=== PATIENT | female | born 2000 | race African-American/Black ===

== ENCOUNTER 2021-07-03 15:56 | Emergency (ER) | payer OTHER, BC, SELFPAY ==
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
[2021-07-03 17:01] VITALS: BP 122/75; PULSE 118; RESP 18; TEMP 36.8; O2SAT 100; BMI 27.3
[2021-07-03] MEDS: Acetaminophen 325 MG TABLET 650 MG PO (17:06)
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
== END 2021-07-03 20:34 | disposition home or self-care (01) ==
PROVIDERS: Emergency Provider Emergency Medicine; PCP Physician Assistant
DX: S46.912A Strain of unspecified muscle, fascia and tendon at shoulder and upper arm level, left arm, initial encounter (principal); V43.52XA Car driver injured in collision with other type car in traffic accident, initial encounter; Y93.89 Activity, other specified; Y92.414 Local residential or business street as the place of occurrence of the external cause; Y99.9 Unspecified external cause status
CPT/HCPCS: 73030; 99283; 99284

== ENCOUNTER 2021-09-09 17:00 | Outpatient (RCR) | payer OTHER, BC, SELFPAY ==
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
--- NOTE | 2021-09-09 17:58 | MHC.PT.DC ---
[facility] [place] Office [place] Office [place] Office [address] Yee Mckeon [address] [phone] F: [phone] F: [phone] F: [phone] F: [phone] Physical Therapy Discharge Report Diagnosis: strain of unspecified muscle, fascia and tendon at shoulder and upper arm level Dorsalgia Date of Surgery: N/A Date of Evaluation: 07/30/21 Date of Discharge: 09/09/21 Treatments to Date: 10 Cancellations to Date: No Shows to Date: Discharge Status: Achieved Goals Improved Function Independent with HEP Discharge Summary: Pt has made good progress with skilled PT since SOC and has reached a functional plateau at this time. She has met her STGs and LTGs. She has improved her score on SPADI outcome measure from 101/130 on initial PT evaluation to 72/130 today. She is I with HEP and has updated copy of HEP. Pt is being D/C from skilled PT at this time. Pt reports no further questions or concerns for PT at this time. Electronically signed by: Carolina Gandara, PT, DPT Please sign and return to therapist. Thank you for your referral.
== END 2021-09-09 17:59 | disposition home or self-care (01) ==
LOC: HO.PT 17:00
PROVIDERS: PCP Physician Assistant; Visit Provider Pediatrics
DX: M54.9 Dorsalgia, unspecified (principal); S46.912D Strain of unspecified muscle, fascia and tendon at shoulder and upper arm level, left arm, subsequent encounter
CPT/HCPCS: 97110; 97140; 97161; 97530

== ENCOUNTER 2022-06-15 01:04 | Emergency (ER) | payer BC, SELFPAY ==
[2022-06-15 01:28] VITALS: BP 116/68; PULSE 89; RESP 14; TEMP 36.6; O2SAT 99; BMI 24.0
--- NOTE | 2022-06-15 01:37 | ECG_ITS ---
Test Reason : SOB/CHEST PAIN Blood Pressure : / mmHG Vent. Rate : 081 BPM Atrial Rate : 081 BPM P-R Int : 126 ms QRS Dur : 076 ms QT Int : 344 ms P-R-T Axes : 066 060 060 degrees QTc Int : 399 ms Normal sinus rhythm with sinus arrhythmia Normal ECG No previous ECGs available Referred By: Generic ED Physician Electronically Signed By:Giorgi Parham
--- NOTE | 2022-06-15 01:50 | ED.URI ---
HPI - URI/Sore Throat General Chief Complaint: Upper Respiratory Symptoms Stated Complaint: coughing, chest pain Time Seen by Provider: 06/15/22 01:42 Source: patient Mode of arrival: ambulatory Limitations: no limitations History of Present Illness HPI Narrative: 22-year-old female came in for evaluation of coughing and chest pain with coughing for the past month. 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 No radiation of the pain. Related Data Previous Rx's Medication Instructions Recorded epinephrine 0.3 mg/0.3 mL 0.3 mg (0.3 mL) IM ONCE PRN 02/15/21 injection, auto-injector anaphylaxis #2 ea cyclobenzaprine 5 mg tablet 5 mg PO BEDTIME #7 tabs 07/03/21 lidocaine 5 % topical patch 1 patch topical DAILY PRN pain #15 07/03/21 ea cetirizine 10 mg tablet 10 mg PO DAILY PRN allergy 07/17/21 symptoms #90 tabs norelgestromin 150 mcg-e.estradiol 1 patch transdermal QWEEK #9 ea 04/28/22 35 mcg/24 hr weekly transderm patch (Xulane) ohbvfkarhguzd-NC-zddnizijpygyd-guaif 10 ml PO .tid PRN cough #177 mL 06/15/22 10 mg-20 mg-650 mg/20 mL oral liq (Yrym-Ngg-Rgds Throat) prednisone 20 mg tablet 20 mg PO BID #10 tabs 06/15/22 Allergies Allergy/AdvReac Type Severity Reaction Status Date / Time No Known Allergies Allergy Verified 04/28/22 13:04 seasonal Allergy Unknown unknown Uncoded 04/28/22 13:04 Review of Systems Review of Systems: All other systems are reviewed and are negative Constitutional: Reports as per HPI and Reports no additional constitutional complaints Eyes: Reports as per HPI and Reports no additional eye complaints Reports system reviewed and no additional complaints, except as documented Cardiovascular: Reports as per HPI and Reports no additional cardiovascular complaints Respiratory: Reports as per HPI and Reports no additional respiratory complaints Gastrointestinal: Reports as per HPI and Reports no additional gastrointestinal complaints Genitourinary: Reports no additional female genitourinary complaints Musculoskeletal: Reports no additional musculoskeletal complaints Skin/Breast: Reports system reviewed and no additional complaints, except as docu Psychiatric: Reports no additional psychiatric complaints Endocrine: Reports no additional endocrine complaints Hematologic/Lymphatic: Reports no additional hematologic/lymphatic complaints Allergic/Immunologic: Reports no additional allergic/immunologic complaints Reports system reviewed and no additional complaints, except as documented and Reports Abnormal speech present [facility] Past Medical History Medical History COVID-19 vaccine administered Family History Family History Mother No problems noted. Social History Social History Household Members: Family Advance Directives: No Physical Exam Vital Signs: Vital Signs: Last Vital Signs Temp 97.8 F 06/15/22 02:05 Pulse 84 06/15/22 02:05 Resp 16 06/15/22 02:05 BP 118/76 06/15/22 02:05 Pulse Ox 98 06/15/22 02:37 O2 Del Method 06/15/22 02:37 BMI result Body Mass Index 24.0 Vital signs have been reviewed as appeared to be correct. Blood pressure normal. Heart rate normal. Respiration rate normal. Temperature normal. Oxygen saturation normal. Appearance: Alert. Oriented X3. No acute distress. Head: Normal external exam. Normocephalic. Atraumatic. No Landaverde signs noted. No raccoon eyes noted Eyes: PERRLA. EOMI. Conjunctiva and sclera normal. Eyelids normal. ENT: TM's Normal. Pharynx normal. Uvula midline. Moist mucous membranes. No trismus noted. No drooling noted. No muffled voice noted. Neck: Normal inspection. Neck supple. FROM. No adenopathy. Thyroid Normal. No meningeal signs. No neck mass noted. CVS: Normal heart rate and rhythm. Heart sound normal. No murmurs noted. Pulses normal throughout. Respiratory: No respiratory distress. Painless inspiration. Breath sounds normal. No wheezes/rales/rhonchi noted. Chest nontender. No accessory muscle usage noted or decreased air movement noted. Abdomen: Soft and nontender. Bowel sounds normal in all 4 quadrants. No distention noted. No organomegaly noted. No visible injury noted. Back: No CVA tenderness. Full range of motion noted. Skin: Skin warm and dry. Normal skin color. Normal skin turgor. No rashes/lesions/lacerations noted. Extremities: No lower extremity edema. Extremities exhibit normal range of motion. Extremities nontender. Neuro: Oriented X 3. Cranial nerve exam: II-XII are grossly intact No motor deficit. No sensory deficit. Reflexes normal. Course Course Course Narrative: 22-year-old female came in for 1 month of coughing and chest pain, patient is negative for upper respiratory viral panel infection, chest x-ray is unremarkable for acute infiltrate. Patient been having the symptoms for 1 month will start the patient on short course of low-dose of prednisone and coughing medication with follow-up with PCP. Medical Decision Making Differential Diagnosis Differential Diagnoses: The differential diagnosis associated with the presentation includes (RSV, influenza, COVID-19 infection, pneumonia.) Lab Data MDM Lab Attestation statement: I reviewed the patient's lab results. Result Diagrams: 06/15/22 01:45 06/15/22 01:45 Labs: Lab Results 06/15/22 06/15/22 06/15/22 Range/Units 01:45 01:45 01:45 WBC 7.2 (4.8-10.8) X10*3/uL RBC 4.25 (4.20-5.50) X10*6/uL Hgb 12.9 (12.0-16.0) g/dl Hct 37.7 (37.0-47.0) % MCV 88.7 (80.0-98.0) fL MCH 30.4 (27.0-33.0) pg MCHC 34.2 (31.0-35.0) g/dl RDW 12.6 (11.0-16.0) % Plt Count 260 (160-400) X10*3/uL MPV 10.2 (9.4-12.3) fL Absolute Nucleated RBC 0.000 (0.0-0.012) X10*3/uL Nucleated RBC % (auto) 0.0 (0.0-0.2) /100WBC Sodium 139 (135-145) mmol/L Potassium 4.0 (3.3-5.1) mmol/L Chloride 108 (96-108) mmol/L Carbon Dioxide 23 (22-29) mmol/L Anion Gap 12 (12-20) BUN 10 (9-16) mg/dL Creatinine 0.62 (0.5-1.4) mg/dL Estim Creat Clear Calc 117.1 Estimated GFR > 60 Random Glucose 88 (60-115) mg/dL Calcium 8.9 (8.4-10.2) mg/dL COVID-19 (YUMIKO) (Negative) COVID-19 Clin Com Influenza Type A (PCR) NEGATIVE (Negative) Influenza Type B (PCR) NEGATIVE (Negative) RSV RNA Qual (PCR) NEGATIVE (Negative) SARS-CoV-2 RNA (RT-PCR) NEGATIVE (Negative) 06/15/22 Range/Units 02:01 WBC (4.8-10.8) X10*3/uL RBC (4.20-5.50) X10*6/uL Hgb (12.0-16.0) g/dl Hct (37.0-47.0) % MCV (80.0-98.0) fL MCH (27.0-33.0) pg MCHC (31.0-35.0) g/dl RDW (11.0-16.0) % Plt Count (160-400) X10*3/uL MPV (9.4-12.3) fL Absolute Nucleated RBC (0.0-0.012) X10*3/uL Nucleated RBC % (auto) (0.0-0.2) /100WBC Sodium (135-145) mmol/L Potassium (3.3-5.1) mmol/L Chloride (96-108) mmol/L Carbon Dioxide (22-29) mmol/L Anion Gap (12-20) BUN (9-16) mg/dL Creatinine (0.5-1.4) mg/dL Estim Creat Clear Calc Estimated GFR Random Glucose (60-115) mg/dL Calcium (8.4-10.2) mg/dL COVID-19 (YUMIKO) Negative (Negative) COVID-19 Clin Com See Note Influenza Type A (PCR) (Negative) Influenza Type B (PCR) (Negative) RSV RNA Qual (PCR) (Negative) SARS-CoV-2 RNA (RT-PCR) (Negative) Independent Interpretation I performed an independent interpretation of an: Plain X-Ray (Chest: No acute intrathoracic pathology.) Radiology Impression Discussion of test interpretation with radiology: I have reviewed the radiologist's reading. Discharge Plan Discharge Clinical Impression: Bronchitis Patient Disposition: Home, Self-Care Instructions: Acute Bronchitis (ED) Prescriptions: New prednisone 20 mg tablet 20 mg PO BID Qty: 10 0RF Rape-Iau-Ggdg Throat 10-20-650 mg/20 mL liquid 10 ml PO .tid PRN (Reason: cough) Qty: 177 0RF No Action cetirizine 10 mg tablet 10 mg PO DAILY PRN (Reason: allergy symptoms) Qty: 90 1RF cyclobenzaprine 5 mg tablet 5 mg PO BEDTIME Qty: 7 0RF lidocaine 5 % adhesive patch,medicated 1 patch topical DAILY PRN (Reason: pain) Qty: 15 0RF Rx Instructions: leave on most painful area for up to 12 hrs epinephrine 0.3 mg/0.3 mL auto-injector 0.3 mg IM ONCE PRN (Reason: anaphylaxis) Qty: 2 0RF Rx Instructions: for 2 doses Xulane 150-35 mcg/24 hr patch weekly 1 patch transdermal QWEEK Qty: 9 4RF Rx Instructions: apply once weekly for 3 weeks of a 4-week cycle Referrals: Physician,Unknown J [Primary Care Provider] - Stand Alone Forms: Work/School Release
[2022-06-15 01:53] LABS: Hematocrit 37.7 % (37.0-47.0); Hemoglobin 12.9 g/dl (12.0-16.0); Mean Corpuscular HGB Conc 34.2 g/dl (31.0-35.0); Mean Corpuscular Hemoglobin 30.4 pg (27.0-33.0); Mean Corpuscular Volume 88.7 fL (80.0-98.0); Mean Platelet Volume 10.2 fL (9.4-12.3); Platelet Count 260 X10*3/uL (160-400); Red Blood Count 4.25 X10*6/uL (4.20-5.50); Red Cell Distribution Width 12.6 % (11.0-16.0); White Blood Count 7.2 X10*3/uL (4.8-10.8)
[2022-06-15 02:05] VITALS: BP 118/76; PULSE 84; RESP 16; TEMP 36.6; O2SAT 98
[2022-06-15 02:18] LABS: Anion Gap 12 (12-20); Blood Urea Nitrogen 10 mg/dL (9-16); Calcium 8.9 mg/dL (8.4-10.2); Carbon Dioxide 23 mmol/L (22-29); Chloride 108 mmol/L (96-108); Creatinine Clr Calc Pharmacy 117.1; Estimated Glomerular Filt Rate > 60; Glucose Random 88 mg/dL (60-115); Sodium 139 mmol/L (135-145)
[2022-06-15 02:20] LABS: COVID-19 Test Negative (Negative); IDNOW Serial# BCCEAD1C
[2022-06-15 02:30] LABS: Influenza A PCR NEGATIVE (Negative); Influenza B PCR NEGATIVE (Negative); Resp Syncy Virus RNA Qual PCR NEGATIVE (Negative); SARS COV2 PCR INHOUSE NEGATIVE (Negative)
[2022-06-15 02:37] VITALS: O2SAT 98
== END 2022-06-15 03:52 | disposition home or self-care (01) ==
PROVIDERS: Emergency Provider Emergency Medicine
DX: J20.9 Acute bronchitis, unspecified (principal); R05.9 Cough, unspecified; R07.89 Other chest pain; Z20.822 Contact with and (suspected) exposure to COVID-19; Z79.899 Other long term (current) drug therapy
CPT/HCPCS: 0241U; 36415; 71046; 80048; 85027; 87635; 93005; 99285

== ENCOUNTER 2022-08-05 07:23 | Emergency (ER) | payer BC, SELFPAY ==
[2022-08-05 07:30] VITALS: BP 105/69; PULSE 90; RESP 18; TEMP 36.2; O2SAT 99; BMI 24.0
[2022-08-05 08:09] LABS: IDNOW Serial# 9DB6401D; Influenza A Negative (Negative); Influenza B2 Negative (Negative)
[2022-08-05 08:10] LABS: COVID-19 Test Negative (Negative); IDNOW Serial# 16C4AD1C
[2022-08-05 08:33] VITALS: O2SAT 99
--- NOTE | 2022-08-05 08:40 | ED_ITS ---
HPI - General Adult General Chief complaint: Upper Respiratory Symptoms Stated complaint: Sore throat Time Seen by Provider: 08/05/22 08:27 Source: patient Mode of arrival: ambulatory Limitations: no limitations History of Present Illness HPI narrative: Patient is a 22 year old assigned female at with no reported medical history presenting to the emergency department today with a sore throat. Patient states that she has had a sore throat for the last few days and last night she began to lose her voice. Patient denies any dizziness, lightheadedness, abdominal pain, nausea, vomiting, fever, chills, blurry vision, double vision, loss of vision, chest pain, difficulty breathing, shortness of breath, back pain, night sweats, pain with urination, increased urinary frequency, increased urinary urgency, blood in her urine or stool, syncope or a near syncopal episode, recent trauma or falls, bowel incontinence, bladder incontinence, bowel retention, bladder retention, or any other complaints at this time. Onset (ago): day(s) Severity: mild Severity scale (1-10): 2 Relieving factors: none Exacerbating factors: none Associated symptoms: denies other symptoms Treatments prior to arrival: none Related Data Previous Rx's Medication Instructions Recorded epinephrine 0.3 mg/0.3 mL 0.3 mg (0.3 mL) IM ONCE PRN 02/15/21 injection, auto-injector anaphylaxis #2 ea cyclobenzaprine 5 mg tablet 5 mg PO BEDTIME #7 tabs 07/03/21 lidocaine 5 % topical patch 1 patch topical DAILY PRN pain #15 07/03/21 ea cetirizine 10 mg tablet 10 mg PO DAILY PRN allergy 07/17/21 symptoms #90 tabs norelgestromin 150 mcg-e.estradiol 1 patch transdermal QWEEK #9 ea 04/28/22 35 mcg/24 hr weekly transderm patch (Xulane) phmmzgiaembnn-NG-saijqfegmbtyk-guaif 10 ml PO .tid PRN cough #177 mL 06/15/22 10 mg-20 mg-650 mg/20 mL oral liq (Mfsh-Phh-Mvje Throat) prednisone 20 mg tablet 20 mg PO BID #10 tabs 06/15/22 Allergies Allergy/AdvReac Type Severity Reaction Status Date / Time No Known Allergies Allergy Verified 04/28/22 13:04 seasonal Allergy Unknown unknown Uncoded 04/28/22 13:04 Review of Systems Constitutional: Constitutional: Reports no additional constitutional complaints, Denies chills, Denies fever(s) and Denies night sweats Eyes: Eyes: Reports no additional eye complaints, Denies blurry vision, Denies change in vision, Denies diplopia, Denies eye discharge, Denies loss of vision and Denies eye pain ENT: Denies dizziness and Reports sore throat Cardiovascular: Cardiovascular: Reports no additional cardiovascular complaints, Denies chest pain, Denies lightheadedness, Denies Loss of Consciousness and Denies dyspnea Respiratory: Respiratory: Reports no additional respiratory complaints and Denies dyspnea Gastrointestinal: Gastrointestinal: Reports no additional gastrointestinal complaints, Denies abdominal pain, Denies melena, Denies hematochezia, Denies change in bowel habits and Denies change in stool character Genitourinary: Genitourinary: Denies hematuria, Denies urinary frequency, Denies dysuria, Denies urinary incontinence, Denies urinary hesitancy and Denies urinary urgency Musculoskeletal: Musculoskeletal: Reports no additional musculoskeletal complaints, Denies numbness and Denies tingling Neurologic: Denies dizziness, Denies loss of vision, Denies numbness and Denies tingling Psychiatric: Psychiatric: Reports no additional psychiatric complaints Endocrine: Endocrine: Reports no additional endocrine complaints Hematologic/Lymphatic: Hematologic/Lymphatic: Reports no additional hematologic/lymphatic complaints Allergic/Immunologic: Allergic/Immunologic: Reports no additional allerg ic/immunologic complaints FOR[facility]LY [facility], [facility] Past Medical History Attestation statement: The following information was validated with the patient. Source: old records reviewed and nursing notes reviewed Medical History COVID-19 vaccine administered No known health problems No known health problems Family History Family History Mother No problems noted. Social History Social History Household Members: Family Alcohol intake: never Smoked in Last 30 Days: No Use of substances other than those prescribed or required for medical reasons: No Advance Directives: No Advance Directives Information Provided: No Patient : No Physical Exam ED Vital Signs: Vital Signs - 24 hr 08/05/22 07:30 08/05/22 08:33 Temperature 97.1 F Pulse Rate 90 Respiratory Rate 18 Blood Pressure 105/69 Pulse Oximetry 99 99 Oxygen Delivery Method Room Air Room Air BMI result Body Mass Index 24.0 Const General: cooperative, no acute distress, alert and awake Nutritional Appearance: well nourished Orientation/consciousness: patient oriented x3 Limitations: no limitations HENMT Head: Yes normal to inspection and Yes atraumatic Ears: hearing grossly normal bilaterally and external ears normal General nose exam: Normal external nose present, no nasal discharge noted and no epistaxis Face and sinus: Yes normal facial exam, No abrasion and No laceration Mouth: Normal oral and palatal mucosa present, no drooling and no muffled voice Throat: Yes posterior oropharynx abnormal (minimal erythema) Eyes General: appearance normal, both eyes and all related structures Periorbital: periorbital findings normal Eyelids: Yes eyelids normal Conjunctivae: conjunctivae normal Pupils: Equal, round and reactive pupils present EOM: EOMs intact bilaterally Neck Neck: Yes normal visual inspection, Yes full ROM and Yes no lymphadenopathy Chest Chest palpation & inspection: normal inspection of the chest Resp Effort & Inspection: normal respiratory effort and able to speak in complete sentences Auscultation: clear to auscultation bilaterally Cardio Rate: regular rate Rhythm: regular rhythm GI Inspection: Yes normal to inspection Neuro General: patient oriented x3 and moves all extremities Cranial nerves: Yes Equal, round and reactive pupils present Cognition (Neuro): normal cognition Motor exam (neuro): 5/5 motor strength present throughout Sensory Exam: Normal double simultaneous stimulation for sensation Coordination: lmpyfy-xo-imsi test normal Extrem General: Yes normal to inspection, Yes full ROM and Yes capillary refill normal Psych Appearance: grossly normal Mental Status: mental status grossly normal Affect: normal affect Attitude: cooperative Thought process: Normal thought process present Thought content: Normal thought content present Insight: Good insight present (Psych) Medical Decision Making Medical Decision Making MDM Narrative: Patient is a 22 year old assigned female at with no reported medical history presenting to the emergency department today with a sore throat. Patient's physical exam showed minimal posterior oropharynx erythema. Patient's COVID/Influenza and strep tests were negative. I explained my physical exam findings as well as all test results to the patient. I answered all questions asked by the patient. I stressed the importance of the patient taking her medication as prescribed. I stressed the importance of the patient following up with her primary care provider. I stressed the importance of the patient returning to the emergency department immediately if her symptoms were to worsen or if she were to develop any dizziness, shortness of breath, difficulty breathing, chest pain, blurry vision, loss of vision, nausea, vomiting, abdominal pain, fever, chills, back pain, or any other complaints. Patient verbalized agreement and understanding with this treatment plan and discharge. Differential Diagnosis Differential Diagnoses: The differential diagnosis associated with the pr esentation includes pharyngitis Lab Data MDM Lab Attestation statement: I reviewed the patient's lab results. Labs: Lab Results 08/05/22 08/05/22 08/05/22 Range/Units 07:35 07:35 07:35 COVID-19 (YUMIKO) Negative (Negative) COVID-19 Clin Com See Note Influenza Type A (IRENE) Negative (Negative) Influenza Type B (IRENE) Negative (Negative) Influenza A & B Note See Note S. pyogenes GrpA IRENE Negative (Negative) Discharge Plan Discharge Clinical Impression: Pharyngitis Patient Disposition: Home, Self-Care Instructions: Pharyngitis (ED) Additional Instructions: Follow up with your primary care provider. Return to the emergency department immediately if your symptoms worsen or if you develop any dizziness, shortness of breath, difficulty breathing, chest pain, blurry vision, loss of vision, nausea, vomiting, abdominal pain, fever, chills, back pain, or any other complaints. Prescriptions: No Action cetirizine 10 mg tablet 10 mg PO DAILY PRN (Reason: allergy symptoms) Qty: 90 1RF cyclobenzaprine 5 mg tablet 5 mg PO BEDTIME Qty: 7 0RF lidocaine 5 % adhesive patch,medicated 1 patch topical DAILY PRN (Reason: pain) Qty: 15 0RF Rx Instructions: leave on most painful area for up to 12 hrs prednisone 20 mg tablet 20 mg PO BID Qty: 10 0RF Qljf-Ijz-Aqib Throat 10-20-650 mg/20 mL liquid 10 ml PO .tid PRN (Reason: cough) Qty: 177 0RF epinephrine 0.3 mg/0.3 mL auto-injector 0.3 mg IM ONCE PRN (Reason: anaphylaxis) Qty: 2 0RF Rx Instructions: for 2 doses Xulane 150-35 mcg/24 hr patch weekly 1 patch transdermal QWEEK Qty: 9 4RF Rx Instructions: apply once weekly for 3 weeks of a 4-week cycle Referrals: [facility] [place] [facility] [place] Group] (Call to establish and follow up with a primary care provider. If you already have a primary care provider, please follow up with them. ) [facility] [place] [facility] [Provider Group] (Call to establish and follow up with a primary care provider. If you already have a primary care provider, please follow up with them. ) [facility] [place] [facility] [Provider Group] (Call to establish and follow up with a primary care provider. If you already have a primary care provider, please follow up with them. ) Stand Alone Forms: Work/School Release Interventions: ED Discharge Assessment Last Done: 08/05/22 09:14 Print Language: American
[2022-08-05 08:43] LABS: IDNOW Serial# 6674DD1D; Strep A Nucleic Acid Negative (Negative)
== END 2022-08-05 09:15 | disposition home or self-care (01) ==
PROVIDERS: Emergency Provider Emergency Medicine
DX: J02.8 Acute pharyngitis due to other specified organisms (principal); Z20.822 Contact with and (suspected) exposure to COVID-19; Z20.828 Contact with and (suspected) exposure to other viral communicable diseases; Z79.899 Other long term (current) drug therapy
CPT/HCPCS: 87502; 87635; 87651; 99283; 99284

== ENCOUNTER 2022-08-18 12:11 | Outpatient (REF) | payer BC, SELFPAY ==
[2022-08-18 13:00] LABS: Influenza A PCR NEGATIVE (Negative); Influenza B PCR NEGATIVE (Negative); Resp Syncy Virus RNA Qual PCR NEGATIVE (Negative); SARS COV2 PCR INHOUSE NEGATIVE (Negative)
== END 2022-08-18 12:12 | disposition home or self-care (01) ==
LOC: HO.LNP 12:11
PROVIDERS: Visit Provider Hospitalist
DX: Z20.822 Contact with and (suspected) exposure to COVID-19 (principal); B34.9 Viral infection, unspecified
CPT/HCPCS: 0241U

== ENCOUNTER 2023-06-12 09:24 | Outpatient (REF) | payer BC, SELFPAY ==
[2023-06-13 05:43] LABS: CT PCR NOT DETECTED (Not Detect.); NG PCR NOT DETECTED (Not Detect.)
[2023-06-13 12:12] LABS: BV Int Neg Control Negative (Negative); BV Int Pos Control Positive (Positive)
[2023-06-27 04:09] LABS: HPV mRNA E6/E7 rflx Not Detected (Not Detected)
== END 2023-06-12 09:25 | disposition home or self-care (01) ==
LOC: HO.LNP 09:24
PROVIDERS: PCP Hospitalist; Visit Provider Advanced Practice Midwife
DX: Z01.419 Encounter for gynecological examination (general) (routine) without abnormal findings (principal); Z11.51 Encounter for screening for human papillomavirus (HPV); Z20.2 Contact with and (suspected) exposure to infections with a predominantly sexual mode of transmission
CPT/HCPCS: 0353U; 87480; 87510; 87624; 87660; 88142

== ENCOUNTER 2023-06-12 09:24 | Outpatient (AMB) | payer BC, SELFPAY ==
[2023-06-12 09:29] VITALS: BP 110/66; BMI 25.7
--- NOTE | 2023-06-12 09:29 | MHC.OFFVIS ---
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 She had a visit last year to discuss all of this and the plan at that time was to schedule at an annual exam and Pap soon after but it has been a little over year. She has the Ortho Evra/zulane patch and she has been using it for the past year and likes it very much and feels it is working well for her she changes it weekly she has not had any issues with being late with a when she is got no skin concerns and she is happy with the method in wants another prescription for. She has 1 box left and is in the middle of 1 cycle currently. She has no health concerns and she does not smoke. [facility] Medical History No known health problems No known health problems COVID-19 vaccine administered Family History Mother No problems noted. Social History Household Members: Family Housing: Apartment Alcohol intake: never Patient Tobacco Use Status: Never used Tobacco e-Cigarette/Vaping Use: Never Used Current occupational status: employed Female Reproductive History Menstrual Age of Menarche: 13 Duration of menses: 3-5 days Date of last menstrual period: 05/22/23 control method: patch Total pregnancies: 0 Physical Exam Vital Signs: Last Vital Signs BP 110/66 06/12/23 09:29 BMI result Body Mass Index 25.7 Const General: healthy appearing, comfortable, no acute distress, well developed and alert Nutritional Appearance: average body habitus Orientation/consciousness: patient oriented x3 Limitations: no limitations HEENT Head: Yes normocephalic Neck Neck: Yes normal visual inspection Thyroid: Thyroid normal Chest Chest palpation & inspection: normal inspection of the chest Breast/axilla inspection: normal inspection of the breasts and normal inspection of the axillae Breast/axilla palpation: normal palpation of the breasts and normal palpation of the axillae Resp Effort & Inspection: normal respiratory effort GI Inspection: Yes normal to inspection, No Abdominal wall edema and No distended Palpation (GI): Soft to palpation and nontender Other: Normal external exam no lesions vagina pink moist with healthy appearing mucus cervix is nulliparous posterior mobile nontender with normal discharge uterus is small midposition mobile nontender adnexa is nontender not enlarged good tone with Kegel. General: Yes bladder normal to palpation External Female Exam: normal external appearance and normal appearance of the urethra Speculum Exam - Vagina: normal appearance of the vagina, normal palpation and normal vaginal discharge Speculum Exam - Cervix: normal appearance of the cervix, normal palpation and nontender Bimanual exam- vagina & uterus: normal bimanual exam, normal palpation, uterine size normal, bladder normal to palpation, consistency normal, normal palpation, uterine mobility normal, uterine shape normal, No Cervical tenderness present, non-tender and no cervical motion tenderness Bimanual Exam- Adnexa, other: normal adnexae, no masses, normal and No adnexal tenderness Neuro General: patient oriented x3 Assessment & Plan Assessment & Plan (1) Uses hormonal contraceptive patch as primary control method: Code(s): Z78.9 - Other specified health status (2) Well woman exam with routine gynecological exam: Code(s): Z01.419 - Encounter for gynecological examination (general) (routine) without abnormal findings (3) Cervical cancer screening: Code(s): Z12.4 - Encounter for screening for malignant neoplasm of cervix (4) Encounter for screening examination for sexually transmitted disease: Code(s): Z11.3 - Encounter for screening for infections with a predominantly sexual mode of transmission (5) Contraceptive surveillance: Code(s): Z30.40 - Encounter for surveillance of contraceptives, unspecified Plan -----Discussed in this visit the following: healthy balanced diet, regular and consistent exercise, getting recommended health screens, doing the best she can for her particular health concerns, kegel exercises, pap smear screening and followup recommendations, mammography screening and SBE, normal changes in cycles in her life stage--- . Reviewed her use of the control patch and how to use it and any potential problems and she is not having any of them. I renewed her prescription for another year I also reviewed normal female anatomy with her and normal vaginal carson and common findings of Gardnerella or Sonal on the test findings and that she would only need treatment if she is having symptoms her discharge was completely within normal limits. Orders: Orders CT NG by PCR Today Z20.2 - Contact with and (suspected) exposure to infections with a predominantly sexual mode of transmission Pap Smear Today Z12.4 - Encounter for screening for malignant neoplasm of cervix Bacterial Vaginosis Panel Today Z20.2 - Contact with and (suspected) exposure to infections with a predominantly sexual mode of transmission Medications: Refilled norelgestromin-ethin.estradiol 150-35 mcg/24 hr (Xulane) apply once weekly for 3 weeks of a 4-week cycle 1 patch transdermal QWEEK 9 ea 4RF Coding Level of Care Code Est Pt Prev Care 18-39y(77201) Diagnoses Uses hormonal contraceptive patch as primary control method Z78.9 Well woman exam with routine gynecological exam Z01.419 Cervical cancer screening Z12.4 Encounter for screening examination for sexually transmitted disease Z11.3 Contraceptive surveillance Z30.40
== END 2023-06-12 10:55 | disposition home or self-care (01) ==
LOC: HO.HWSM 09:24
PROVIDERS: PCP Hospitalist; Visit Provider Advanced Practice Midwife
DX: Z01.419 Encounter for gynecological examination (general) (routine) without abnormal findings (principal)
CPT/HCPCS: 99395

== ENCOUNTER 2024-02-23 13:03 | Emergency (ER) | payer BC, SELFPAY ==
[2024-02-23 13:10] VITALS: BP 108/68; PULSE 105; RESP 19; TEMP 36.6; O2SAT 98; BMI 25.5
--- NOTE | 2024-02-23 13:11 | ED.GENADULT ---
HPI - General Adult General Chief complaint: General Medical Stated complaint: Sore throat, ear ache Time Seen by Provider: 02/23/24 13:11 Source: patient, RN notes reviewed and old records reviewed Mode of arrival: ambulatory Limitations: no limitations History of Present Illness ED Provider: Rose Marie OROZCO narrative: 23-year-old female presents for evaluation of a sore throat and left ear pain Patient reports that she woke up this morning with the pain pain Denies any fevers, chills, cough Denies any known specific contacts pain Denies any recent travel. She reports that she went to an urgent care but ?they told me everybody has the same thing and they are too busy so to come here. ? Related Data Previous Rx's ?Medication ?Instructions ?Recorded cetirizine 10 mg tablet 10 mg PO DAILY PRN allergy 08/13/22 symptoms #90 tabs epinephrine 0.3 mg/0.3 mL 0.3 mg (0.3 mL) IM ONCE PRN 08/13/22 injection, auto-injector anaphylaxis #2 ea norelgestromin 150 mcg-e.estradiol 1 patch transdermal QWEEK #9 ea 06/12/23 35 mcg/24 hr weekly transderm patch (Xulane) amoxicillin 875 mg-potassium 1 tab PO Q12H #20 tabs 02/23/24 clavulanate 125 mg tablet Allergies Allergy/AdvReac Type Severity Reaction Status Date / Time No Known Allergies Allergy Verified 02/23/24 13:11 seasonal Allergy Unknown unknown Uncoded 02/23/24 13:11 Review of Systems Constitutional: Constitutional: Denies body ache(s), Denies chills, Denies fever(s) and Denies headache(s) Eyes: Eyes: Denies blurry vision ENT: Reports otalgia, Denies headache(s) and Reports sore throat Cardiovascular: Cardiovascular: Denies chest pain and Denies dyspnea Respiratory: Respiratory: Denies cough and Denies dyspnea Gastrointestinal: Gastrointestinal: Denies abdominal pain, Denies nausea and Denies vomiting Musculoskeletal: Musculoskeletal: Denies back pain Integumentary/Breasts: Skin/Breast: Denies rash Neurologic: Denies headache(s) PMFSH Past Medical History Medical History No known health problems No known health problems COVID-19 vaccine administered Family History Family History Mother No problems noted. Social History Social History Household Members: Family Housing: Apartment Alcohol intake: never Patient Tobacco Use Status: Never used Tobacco e-Cigarette/Vaping Use: Never Used Advance Directives: No Advance Directives Information Provided: No Current occupational status: employed Physical Exam ED Vital Signs: Vital Signs - 24 hr 02/23/24 13:10 02/23/24 13:28 Temperature 98 F 98 F Pulse Rate 105 H 78 Respiratory Rate 19 19 Blood Pressure 108/68 129/63 Pulse Oximetry 98 98 Oxygen Delivery Method Room Air Room Air BMI result Body Mass Index 25.5 Const General: healthy appearing, comfortable, no acute distress, alert and awake Nutritional Appearance: well nourished Orientation/consciousness: patient oriented x3 HENMT Other: Retro pharynx is erythematous, no obvious exudates. No evidence of peritonsillar abscess Head: Yes normocephalic and Yes atraumatic Ears: TM's normal bilaterally (Mild cerumen buildup on left) Eyes Eyelids: Yes eyelids normal Conjunctivae: conjunctivae normal Sclerae: sclerae normal Corneas: corneas normal Pupils: Equal, round and reactive pupils present EOM: EOMs intact bilaterally Neck Neck: Yes full ROM Resp Effort & Inspection: normal respiratory effort, able to speak in complete sentences and not labored Skin General skin exam: elasticity normal Neuro General: patient oriented x3 Cranial nerves: Yes Equal, round and reactive pupils present and Yes Bilaterally intact EOM present Cognition (Neuro): normal cognition Extrem Other: Moving all extremities well without any obvious deformities Medical Decision Making Medical Decision Making MDM Narrative: 23-year-old female presents for evaluation of a sore throat and left ear pain. She does not have any evidence of acute otitis media on left. However she does have evidence of pharyngitis, offered strep testing and the patient declines. She will be treated with Augmentin for pharyngitis Differential Diagnosis Differential Diagnoses: The differential diagnosis associated with the presentation includes Pharyngitis Upper respiratory infection Strep throat COVID-19 Otitis media Otitis externa Discharge Plan Discharge Clinical Impression: Pharyngitis Patient Disposition: Home, Self-Care Instructions: Pharyngitis (ED) Additional Instructions: Take the antibiotics twice daily for the next 10 days You may also use saltwater gargles to help with your symptoms. Drink lots of fluids Use ibuprofen/Tylenol for pain Follow-up with your primary doctor Prescriptions: New amoxicillin-pot clavulanate 875-125 mg tablet 1 tab PO Q12H Qty: 20 0RF No Action epinephrine 0.3 mg/0.3 mL auto-injector 0.3 mg IM ONCE PRN (Reason: anaphylaxis) Qty: 2 3RF Rx Instructions: for 2 doses cetirizine 10 mg tablet 10 mg PO DAILY PRN (Reason: allergy symptoms) Qty: 90 1RF Xulane 150-35 mcg/24 hr patch weekly 1 patch transdermal QWEEK Qty: 9 4RF Rx Instructions: apply once weekly for 3 weeks of a 4-week cycle Interventions: ED Discharge Assessment Last Done: 02/23/24 13:28 Discharge Date/Time: 02/23/24 13:29 Print Language: Norwegian
[2024-02-23 13:28] VITALS: BP 129/63; PULSE 78; RESP 19; TEMP 36.6; O2SAT 98
== END 2024-02-23 13:29 | disposition home or self-care (01) ==
LOC: HO.ED 13:16
PROVIDERS: Emergency Provider Emergency Medicine
DX: J02.9 Acute pharyngitis, unspecified (principal); H92.02 Otalgia, left ear
CPT/HCPCS: 99282; 99283

== ENCOUNTER 2024-03-30 14:28 | Outpatient (AMB) | payer BC, SELFPAY ==
--- NOTE | 2024-03-30 15:04 | MHC.OFFWIV ---
Intake Vital Signs 03/30/24 15:05 Height 5 ft 1 in Weight 158 lb BMI 29.9 BP 108/66 Blood Pressure Location Rt brachial Position Sitting Pulse 122 H Pulse Source Pulse Oximeter Pulse Oximetry (%) 98 Oxygen Delivery Method Room Air Intake Visit Reasons: EP chronic cough Intake Note: Patient here for cough that started yesterday, pt denies any other symptoms. Patient Tobacco Use Status: Never used Tobacco Allergies No Known Allergies Allergy (Verified 03/30/24 15:06) seasonal Allergy (Unknown, Uncoded 03/30/24 15:06) unknown Do you need a note to return to daycare/school/sports/work: Yes HPI HPI Comments History of Present Illness Details Patient is a 23-year-old female complaining of 4 days of a dry cough and chest tightness with shortness of breath. [facility] Medical History No known health problems No known health problems COVID-19 vaccine administered Family History Mother No problems noted. Social History Household Members: Family Housing: Apartment Alcohol intake: never Patient Tobacco Use Status: Never used Tobacco e-Cigarette/Vaping Use: Never Used Current occupational status: employed Female Reproductive History Menstrual Age of Menarche: 13 Review of Systems Const All systems reviewed & are unremarkable except as noted in HPI and below Physical Exam Vital Signs: Last Vital Signs Pulse 122 H 03/30/24 15:05 BP 108/66 03/30/24 15:05 Pulse Ox 98 03/30/24 15:05 Oxygen Delivery Method Room Air 03/30/24 15:05 BMI result Body Mass Index 29.9 Const General: cooperative, healthy appearing, comfortable and no acute distress Orientation/consciousness: patient oriented x3 Limitations: no limitations HEENT Head: Yes normal to inspection Ears: hearing grossly normal bilaterally, external ears normal and TM's normal bilaterally General nose exam: Normal external nose present, Normal nares present and No nasal discharge present Face and sinus: Yes normal facial exam and Yes sinuses nontender Mouth: Normal oral and palatal mucosa present and moist mucous membranes Throat: Yes tonsils normal, Yes uvula midline and Yes posterior oropharynx abnormal (Erythema) Eyes General: appearance normal, both eyes and all related structures Neck Neck: Yes normal visual inspection Resp Effort & Inspection: normal respiratory effort, able to speak in complete sentences, no respiratory distress, not tachypneic, no tripod positioning and no use of accessory muscles Auscultation: clear to auscultation bilaterally Cardio Rate: regular rate Rhythm: regular rhythm Heart sounds: normal S1 and S2 Skin General skin exam: no rashes or lesions noted Neuro General: patient oriented x3 Extrem General: Yes normal to inspection and Yes no clubbing, cyanosis or edema Assessment & Plan Assessment & Plan (1) Atypical pneumonia: Code(s): J18.9 - Pneumonia, unspecified organism Plan: Sent Z-Aram and inhaler to patient's pharmacy Plan see above Medications: New azithromycin For 250 mg dose pack: take 500 mg today (day 1), then 250 mg for 4 days (days 2-5) PO 6 tabs 0RF albuterol sulfate 90 mcg/actuation (Ventolin HFA) 2 puffs inhalation Q4-6H PRN 8.5 grams 0RF shortness of breath or wheezing Coding Level of Care Code New Pt Level 3 (26378) Diagnoses Atypical pneumonia J18.9
[2024-03-30 15:05] VITALS: BP 108/66; PULSE 122; O2SAT 98; BMI 29.9
== END 2024-03-30 15:15 | disposition home or self-care (01) ==
PROVIDERS: Visit Provider Physician Assistant
DX: J18.9 Pneumonia, unspecified organism (principal)

== ENCOUNTER → 2024-03-30 14:28 | Outpatient (BNVA) | payer BC, SELFPAY | PROVIDERS: Visit Provider Physician Assistant ==

== ENCOUNTER 2024-07-07 10:49 | Outpatient (AMB) | payer BC, SELFPAY ==
--- NOTE | 2024-07-07 11:11 | A.OFFVIS_ITS ---
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 Stove Mechanic Required: No Electric Stove Mechanic Services: Electric Stove Mechanic Present Information Interpreted: clinical only Coffee Host: Coffee Host Present Allergies No Known Allergies Allergy (Verified 03/30/24 15:06) seasonal Allergy (Unknown, Uncoded 07/07/24 11:16) unknown Medication List - Last Reconciled 07/07/24 by Camila Song CNM albuterol sulfate 90 mcg/actuation (Ventolin HFA) 2 puffs inhalation Q4-6H PRN epinephrine 0.3 mg (0.3 mL) IM ONCE PRN norelgestromin-ethin.estradiol 150-35 mcg/24 hr (Xulane) 1 patch transdermal QWEEK Is last menstrual period known: Yes Last menstrual period: 06/21/24 HPI HPI 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 Her last Pap smear was ASCUS with negative HPV she is open to what ever testing is recommended She is on the patch and had run out but called for refills and was given 1 pack. She is not having any problems with the patch it likes it and uses it 3 weeks at a time and 1 week often gets regular periods and is doing fine. She has a new primary care provider that she is going to be meeting soon [place]. 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. [facility] Medical History No known health problems No known health problems COVID-19 vaccine administered Family History Mother No problems noted. Social History Household Members: Family Housing: Apartment Alcohol intake: never Patient Tobacco Use Status: Never used Tobacco e-Cigarette/Vaping Use: Never Used Current occupational status: employed Female Reproductive History Menstrual Age of Menarche: 13 Duration of menses: 3-5 days Date of last menstrual period: 06/21/24 control method: pills Total pregnancies: 0 Date of last pap smear: 06/16/23 (ASCUS) History of abnormal pap smear: Yes Physical Exam Vital Signs: Last Vital Signs BP 118/72 07/07/24 11:16 BMI result Body Mass Index 24.9 Const General: healthy appearing, comfortable, no acute distress, well developed and alert Nutritional Appearance: average body habitus Orientation/consciousness: patient oriented x3 Limitations: no limitations HEENT Head: Yes normocephalic Neck Neck: Yes normal visual inspection Chest Chest palpation & inspection: normal inspection of the chest Breast/axilla inspection: normal inspection of the breasts and normal inspection of the axillae Breast/axilla palpation: normal palpation of the breasts and normal palpation of the axillae Resp Effort & Inspection: normal respiratory effort GI Inspection: Yes normal to inspection, No Abdominal wall edema and No distended Palpation (GI): Soft to palpation and nontender Other: External exam within normal limits vagina is pink and moist there is a thin watery white discharge possibly consistent with yeast. Patient is asymptomatic Cervix is nulliparous with ectropion pink clear healthy appearing no abnormal discharge uterus is small anteverted to deviated slightly to patient's right not enlarged nontender mobile adnexa nontender good tone with Kegel. General: Yes bladder normal to palpation External Female Exam: normal external appearance and normal appearance of the urethra Speculum Exam - Vagina: normal appearance of the vagina, normal palpation and normal vaginal discharge Speculum Exam - Cervix: normal appearance of the cervix, normal palpation and nontender Bimanual exam- vagina & uterus: normal bimanual exam, normal palpation, uterine size normal, bladder normal to palpation, consistency normal, normal palpation, uterine mobility normal, uterine shape normal, No Cervical tenderness present, non-tender and no cervical motion tenderness Bimanual Exam- Adnexa, other: normal adnexae, no masses, normal and No adnexal tenderness Neuro General: patient oriented x3 Results Reviewed Results Reviewed: Name: Shelby Martinez Age/Sex: 23/F Attending: Camila Song CNM : 2000 Submitted by: Camila Song CNM Copies to: Marianna Harris NP MR #: [id number] Status: DEP REF Collected: 06/12/23 Location: [facility] Received: 06/16/23 Interpretation General Category: Epithelial cell abnormality. Adequacy: Endocervical component present. Interpretation: Atypical squamous cells of undetermined significance. HPV mRNA E6/E7: Not Detected This assay detects E6/E7 viral messenger RNA (mRNA) from 14 high-risk HPV types (16, 18, 31, 33, 35, 39, 45, 51, 52, 56, 58, 59, 66, 68) HPV testing performed by [facility], [place], [place]. See reference laboratory portion of the EMR for entire report. Clinical Information LMP: 05/22/23 Previous PAP test: First pap Material Received ThinPrep-Cervical Copies To Camila Song [address] [place], [place] [id number] Marianna Harris TECHNICAL PRODUCER [address] [place], [place] [id number] Electronically Signed By: Simon Uriostegui MD 06/29/23 1016 The Pap Test is a screening procedure with the inherent possibility of both false negative and false positive results. Results should be interpreted in the context of historic and current clinical findings. Reliability of the Pap Test is enhanced by performing the test on a regular repetitive basis. Patient: Shelby Martinez Age/Sex: Assessment & Plan Assessment & Plan (1) Cervical cancer screening: Comment: First Pap 06/12/2023 equals ASCUS with negative HPV.; Pap smear repeated 07/07/2024 with HPV. Records were searched patient received the 3 HPV vaccines 2014- 2015 here at [facility]. Code(s): Z12.4 - Encounter for screening for malignant neoplasm of cervix Category: Medical (2) Uses hormonal contraceptive patch as primary control method: Code(s): Z78.9 - Other specified health status Category: Social Hx (3) Well woman exam with routine gynecological exam: Code(s): Z01.419 - Encounter for gynecological examination (general) (routine) without abnormal findings Category: Medical (4) Contraceptive surveillance: Code(s): Z30.40 - Encounter for surveillance of contraceptives, unspecified Category: Medical (5) Encounter for screening examination for sexually transmitted disease: Code(s): Z11.3 - Encounter for screening for infections with a predominantly sexual mode of transmission Category: Medical Plan -----Discussed in this visit the following: healthy balanced diet, regular and consistent exercise, getting recommended health screens, doing the best she can for her particular health concerns, kegel exercises, pap smear screening and followup recommendations, mammography screening and SBE, normal changes in cycles in her life stage--- . Reviewed her use of the patch she is doing well with that. She is interested in getting screened for STIs testing done during the visit for gonorrhea chlamydia trichomoniasis as well as yeast and bacterial vaginosis. She is not symptomatic for yeast but it appears that it maybe present and she will be offered medication it shows up. Discussed trying to ascertain whether not she has had the HPV vaccine she went to [facility] and so Devi Daniel when she was a girl. We searched the computer and we found her vaccination records and she received all 3 of the HPV vaccines in 2014 to 2016. I printed a copy of her vaccination records for her as well. She is on the portal now so can get her own lab results. I am refilling her patch for another year . She is not having any problems with using it and is using it regularly and wants to continue. Orders: Orders Hepatitis B Surface Antigen Today Z01.419 - Encounter for gynecological examination (general) (routine) without abnormal findings, Z11.3 - Encounter for screening for infections with a predominantly sexual mode of transmission, Z12.4 - Encounter for screening for malignant neoplasm of cervix, Z30.40 - Encounter for surveillance of contraceptives, unspecified, Z78.9 - Other specified health status HIV Ab/Ag Today Z01.419 - Encounter for gynecological examination (general) (routine) without abnormal findings, Z11.3 - Encounter for screening for infections with a predominantly sexual mode of transmission, Z12.4 - Encounter for screening for malignant neoplasm of cervix, Z30.40 - Encounter for surveillance of contraceptives, unspecified, Z78.9 - Other specified health status CT NG by PCR Today N89.8 - Other specified noninflammatory disorders of vagina, Z20.2 - Contact with and (suspected) exposure to infections with a predominantly sexual mode of transmission Hepatitis C Antibody Today Z01.419 - Encounter for gynecological examination (general) (routine) without abnormal findings, Z11.3 - Encounter for screening for infections with a predominantly sexual mode of transmission, Z12.4 - Encounter for screening for malignant neoplasm of cervix, Z30.40 - Encounter for surveillance of contraceptives, unspecified, Z78.9 - Other specified health status Syphilis Screen Today Z01.419 - Encounter for gynecological examination (general) (routine) without abnormal findings, Z11.3 - Encounter for screening for infections with a predominantly sexual mode of transmission, Z12.4 - Encounter for screening for malignant neoplasm of cervix, Z30.40 - Encounter for surveillance of contraceptives, unspecified, Z78.9 - Other specified health s tatus Pap Smear Today Z00.00 - Encounter for general adult medical examination without abnormal findings Bacterial Vaginosis Panel Today N89.8 - Other specified noninflammatory disorders of vagina Medications: Refilled norelgestromin-ethin.estradiol 150-35 mcg/24 hr (Xulane) apply once weekly for 3 weeks of a 4-week cycle 1 patch transdermal QWEEK 9 ea 4RF Coding Level of Care Code Est Pt Prev Care 18-39y(04554) Diagnoses Cervical cancer screening Z12.4 Uses hormonal contraceptive patch as primary control method Z78.9 Well woman exam with routine gynecological exam Z01.419 Contraceptive surveillance Z30.40 Encounter for screening examination for sexually transmitted disease Z11.3
[2024-07-07 11:16] VITALS: BP 118/72; BMI 24.9
== END 2024-07-07 12:07 | disposition home or self-care (01) ==
LOC: HO.HWSM 10:49
PROVIDERS: Visit Provider Advanced Practice Midwife
DX: Z01.419 Encounter for gynecological examination (general) (routine) without abnormal findings (principal); Z30.40 Encounter for surveillance of contraceptives, unspecified; Z11.3 Encounter for screening for infections with a predominantly sexual mode of transmission
CPT/HCPCS: 99395; 99459

== ENCOUNTER 2024-07-07 10:49 | Outpatient (REF) | payer BC, SELFPAY ==
[2024-07-08 04:09] LABS: Syphilis Screen Nonreactive (Nonreactive)
[2024-07-08 04:21] LABS: HBsAGNum1 0.35 S/CO (0.00-0.99); HIV AB/AG Nonreactive (Nonreactive); HIV Num 1 0.05 S/CO (0.00-0.99); Hepatitis B Surface Antigen Negative (Negative); ~HepC Num1 0.12 S/CO (0.00-0.79); ~Hepatitis C Antibody Nonreactive (Nonreactive)
[2024-07-08 09:06] LABS: Bacterial Vaginosis PCR POSITIVE (Negative); Candida Group PCR NOT DETECTED (Not Detect); Candida glab krusei PCR NOT DETECTED (Not Detect); Trichomonas vaginalis PCR NOT DETECTED (Not Detect)
[2024-07-08 09:09] LABS: CT PCR NOT DETECTED (Not Detect.); NG PCR NOT DETECTED (Not Detect.)
== END 2024-07-07 10:50 | disposition home or self-care (01) ==
LOC: HO.LAB 10:49
PROVIDERS: Visit Provider Advanced Practice Midwife
DX: Z01.419 Encounter for gynecological examination (general) (routine) without abnormal findings (principal); Z78.9 Other specified health status; Z11.3 Encounter for screening for infections with a predominantly sexual mode of transmission; N89.8 Other specified noninflammatory disorders of vagina; Z20.2 Contact with and (suspected) exposure to infections with a predominantly sexual mode of transmission
CPT/HCPCS: 81515; 86780; 86803; 87340; 87389; 87491; 87591

== ENCOUNTER 2024-07-07 11:53 | Outpatient (REF) | payer BC, SELFPAY ==
[2024-07-08 09:35] LABS: HPV 16,18/45 See PAP report
== END 2024-07-07 11:54 | disposition home or self-care (01) ==
LOC: HO.LNP 11:53
PROVIDERS: Visit Provider Advanced Practice Midwife
DX: Z00.00 Encounter for general adult medical examination without abnormal findings (principal); N89.8 Other specified noninflammatory disorders of vagina
CPT/HCPCS: 87626; 88175

== ENCOUNTER 2024-07-07 12:09 | Outpatient (REF) | payer BC, SELFPAY | END 2024-07-07 12:10 | disposition home or self-care (01) | LOC: HO.HHCL 12:09 | PROVIDERS: Visit Provider Advanced Practice Midwife | DX: Z13.89 Encounter for screening for other disorder (principal) ==

== ENCOUNTER 2024-11-07 10:37 | Outpatient (AMB) | payer BC, SELFPAY ==
[2024-11-07 12:04] VITALS: BP 112/74; PULSE 74; TEMP 36.8; O2SAT 97
--- NOTE | 2024-11-07 12:04 | MHC.OFFWIV ---
Intake Vital Signs 11/07/24 12:04 Weight 132 lb BP 112/74 Blood Pressure Location Lt brachial Position Sitting Pulse 74 Pulse Source Pulse Oximeter Temp 98.2 F Temp Source Oral Pulse Oximetry (%) 97 Oxygen Delivery Method Room Air Intake Visit Reasons: EP Cough Intake Note: Patient here for dry cough, chest tightness and SOb that started around . Patient Tobacco Use Status: Never used Tobacco Allergies No Known Allergies Allergy (Verified 11/07/24 12:06) seasonal Allergy (Unknown, Uncoded 11/07/24 12:06) unknown Do you need a note to return to daycare/school/sports/work: Yes HPI HPI Comments History of Present Illness Details History - The patient is a 24-year-old female presenting with cough and chest tightness x 5 days. - Symptoms started on , characterized by a persistent dry cough and a sensation of chest tightness. - The patient has asthma and regularly uses an inhaler twice daily, but it hasn't improved her current condition. - She reports no accompanying symptoms such as fever, shortness of breath, or wheezing, and has no reported seasonal allergies. - Previously, she experienced a similar situation in May and was treated for walking pneumonia. - Does not take a daily allergy pill. Physical Exam General: Cooperative, healthy appearing, comfortable and no acute distress Orientation/consciousness: Patient oriented x3 Limitations: No limitations Head: Normal to inspection Ears: Hearing grossly normal bilaterally, external ears normal and TM's normal bilaterally Nose: Normal external nose present, Normal nares present and No nasal discharge present Face and sinus: Normal facial exam and Yes sinuses nontender Mouth: Normal oral and palatal mucosa present and moist mucous membranes Throat: Yes tonsils normal, Yes uvula midline. Posterior oropharynx erythema, cobblestoning present Eyes: Appearance normal, both eyes and all related structures Neck: Normal visual inspection Respiratory: Clear to auscultation bilaterally. Normal respiratory effort, able to speak in complete sentences, no respiratory distress, not tachypneic, no tripod positioning and no use of accessory muscles Cardiovascular: Regular rate and rhythm. Normal S1 and S2 Skin: No rashes or lesions noted Neuro: Patient oriented x3 Extremities: Normal to inspection and Yes no clubbing, cyanosis or edema [facility] Medical History No known health problems No known health problems COVID-19 vaccine administered Family History Mother No problems noted. Social History Household Members: Family Housing: Apartment Alcohol intake: never Patient Tobacco Use Status: Never used Tobacco e-Cigarette/Vaping Use: Never Used Current occupational status: employed Female Reproductive History Menstrual Age of Menarche: 13 Review of Systems Const All systems reviewed & are unremarkable except as noted in HPI and below Physical Exam Vital Signs: Last Vital Signs Temp 98.2 F 11/07/24 12:04 Pulse 74 11/07/24 12:04 BP 112/74 11/07/24 12:04 Pulse Ox 97 11/07/24 12:04 Oxygen Delivery Method Room Air 11/07/24 12:04 Assessment & Plan Assessment & Plan (1) Allergic rhinitis with mild asthma without status asthmaticus, with acute exacerbation: Code(s): J45.901 - Unspecified asthma with (acute) exacerbation Qualifiers: Asthma persistence: persistent Qualified Code(s): J45.31 - Mild persistent asthma with (acute) exacerbation Plan: VSS, pt well appearing and PE unremarkable. The patient will begin a course of oral steroids, taken daily for five days, to alleviate respiratory symptoms of feeling short of breath. A daily antihistamine, such as Xyzal or Zyrtec, is recommended to address signs of allergic rhinitis. The patient is to continue using her inhaler every four to six hours as needed. Prescriptions will be sent to the patient's preferred pharmacy for immediate use. Monitoring of side effects and regular use of the inhaler are emphasized, with the understanding that the patient should follow up if symptoms do not improve or worsen. Patient was informed and verbally consented to the use of an ambient scribe for clinic note documentation during this visit Medications: New prednisone 40 mg (2 x 20 mg) PO QAM 10 tabs 0RF Coding Level of Care Code Est Pt Level 3 (41662) Diagnoses Allergic rhinitis with mild persistent asthma without status asthmaticus with acute exacerbation J45.31 Asthma persistence: persistent
== END 2024-11-07 13:21 | disposition home or self-care (01) ==
PROVIDERS: PCP Family Medicine; Visit Provider Physician Assistant
DX: J45.31 Mild persistent asthma with (acute) exacerbation (principal)

== ENCOUNTER → 2024-11-07 10:37 | Outpatient (BNVA) | payer BC, SELFPAY | PROVIDERS: PCP Family Medicine; Visit Provider Physician Assistant ==

== ENCOUNTER 2025-01-12 10:23 | Outpatient (AMB) | payer BC, SELFPAY ==
--- NOTE | 2025-01-12 10:25 | MHC.PC.OV ---
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- norelgestromin-ethin.estradiol 150-35 mcg/24 hr (Xulane) 1 patch transdermal QWEEK Tobacco use date assessed: 01/12/25 Dental Screening Dental Screen Date: 01/12/25 Did you have a dental visit in the last 12 months?: Yes Did you have a dental problem in the last 6 months where you did not have access to dental care?: No Was dental information given to patient?: Patient has dentist HPI HPI Comments History of Present Illness Details 24y/o F with BV, asthma, environmental allergies, chronic autoimmune urticaria, hx of pna (05/2024) Surgery: None Fhx: Denies signifcant history Social: going to school at [employer] Criminal Justice; 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 Previous PCP: Cayden Suero, then 1 visit [facility] [place] Records reviewed - Controlled asthma, previously exacerbated by pneumonia in May, addressed with a rescue inhaler. - History of environmental allergies and chronic autoimmune urticaria, currently stable w/o medications. Needs epi pen - Previous tetanus vaccination in 2012. - Current use of Xulane patch for contraception, no medication allergies. Past Surgical History - No history of surgical procedures. Family History - No significant family medical history of cancer or early deaths. - Parents are alive, and siblings are well. Health Maintenance - Pap smear conducted in 2024. - Tetanus vaccine last received in 2012, due for a booster. - Anxiety and depression screenings were negative. - Thrive screening indicated stable housing and finances. - Patient agreed to checking labs for diabetes, cholesterol, thyroid function, B12, vitamin D, and complete blood counts. Review of Systems - Respiratory: Reports well-controlled asthma. - Skin: Reports a history of urticaria with no current treatment. - General: Denies any recent surgeries. - Family: Denies significant family history of cancer or early . Physical Exam General: Well developed, well nourished, in no acute distress. Appears stated age. Head: Normocephalic, atraumatic. Eyes: Pupils are equal, round and reactive to light and accommodation. Conjunctivae are clear. Vision grossly normal. Patient wears glasses. Ears: TMs clear AU, EACS WNL Nose: Patent, without discharge. Neck: Supple, no adenopathy or thyromegaly. No pain or tenderness noted. Breast: Edu on SBE. Patient performs own breast exams. Lungs: Clear to auscultation bilaterally. No rales, rhonchi or wheeze noted. Good air flow in all haider. Heart: Regular rate and rhythm. No murmurs, click, rubs or gallops are noted. Abdomen: Bowel sounds present in all quadrants. The abdomen is soft, nontender, with no masses or organomegaly noted. No hernias are noted. : Deferred. Reviewed recommendations for routine INFORMATION TECHNOLOGY ACCOUNT MANAGER. Pulses: Peripheral pulses are equal and palpable bilaterally. Extremities: No clubbing, cyanosis nor edema is noted. No open areas or sores on feet. Neurologic: Gait and station normal. Cranial Nerves 2-12 intact. Motor strength grossly symmetrical and intact. No sensory loss. Balance normal. Skin: No rashes, ulcers, or lesions noted. Turgor is good. Skin color is good. Hair and nails are without abnormalities. Psych: Normal eye contact, affect and mood appropriate, and normal interactions. Patient is alert and appropriate to context. Depression and anxiety screenings negative. Results - Labs: Pending - Pap smear was conducted in 2024. Discussion Notes I discussed with the patient that she would receive a tetanus booster due to her last immunization being in 2012. We addressed her asthma, ensuring she has a rescue inhaler. She agreed to refill the EpiPen for her chronic autoimmune urticaria. We reviewed her need for additional lab work to screen for diabetes, thyroid function, cholesterol, and vitamin levels. I recommended using our patient portal for accessing her results and arranging follow-up appointments. No additional specialists are needed at this time as she reports no other health issues requiring attention. Assessment and Plan 1. Asthma - Controlled with rescue inhaler prescribed. 2. Chronic Autoimmune Urticaria - Refill EpiPen, discuss Zyrtec. 3. Preventative Health - Tdap due, lab screenings ordered. Patient Instructions - Keep albuterol inhaler accessible for emergencies. - Consider using antihistamine such as Zyrtec for urticaria flare-ups. - Schedule a follow-up for next year?s physical and lab results via the portal. - Utilize the portal for any emergent health issues or inquiries. Consent. Patient was informed and verbally consented to the use of an ambient scribe for clinic note documentation during this visit. An additional 15 minutes was spent addressing the problem(s) noted at todays visit. This includes time spent before the visit reviewing the chart, time spent during the visit, and time spent after the visit on documentation reviewing laboratory results, diagnostic imaging, medications, performing a medically necessary evaluation, counseling on diagnoses, care coordination, ordering appropriate tests, ordering appropriate medications, review of tests performed by other providers, reporting test results with the patient, communication with other healthcare providers. [facility] Medical History (Updated 01/12/25 @ 11:01 by Pascale Miguel [facility]) Asthma Atypical pneumonia COVID-19 vaccine administered No known health problems No known health problems Upper back pain Family History (Updated 01/12/25 @ 10:33 by Mercedes Baker MA) Mother No problems noted. 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 1. Little interest or pleasure in doing things: not at all 2. Feeling down, depressed, or hopeless: not at all 3. Trouble falling or staying asleep, or sleeping too much: not at all 4. Feeling tired or having little energy: not at all 5. Poor appetite or overeating: not at all 6. Feeling bad about yourself - or that you are a failure or have let yourself or your family down: not at all 7. Trouble concentrating on things, such as reading the newspaper or watching television: not at all 8. Moving or speaking so slowly that other people could have noticed. Or the opposite - being so fidgety or restless that you have been moving around a lot more than usual: not at all 9. Thoughts that you would be better off or of hurting yourself in some way: not at all Total score: 0 Depression Screening Interpretation: Negative Depression Screening Done: Yes 36622 - PHQ-9 Billing: Yes Source: Developed by Drs. Hiren Reddy, Carmen Daniel, Sanford Sargent and colleagues, with an educational hailey from [employer]. Thrive Questionnaire Date Thrive assessed: 01/12/25 I am a: Patient What is your living situation today?: I have a steady place to live Within the past 12 months, did the food you bought not last and you didn't have the money to get more?: Never true Within the past 12 months, did you worry whether your food would run out before you got money to buy more?: Never true Do you have trouble paying for medicines?: No Do you have trouble getting transportation to medical appointments?: No Do you have trouble paying your heating and electricity bill?: No Do you have trouble taking care of your child, family member or friend?: No Do you have trouble with day-to-day activities such as bathing, preparing meals, shopping, managing finances, etc.?: No Are you currently unemployed and looking for a job?: No Are you interested in more education?: No Please select the resources that you would like help with: None Currently or been in a relationship where the following occur: No concerns reported THRIVE Score: 0 AUDIT C Alcohol Use Questionnaire (AUDIT-C) 1. How often do you have a drink containing alcohol?: Monthly or less 2. How many drinks containing alcohol do you have on a typical day when you are drinking?: 1 or 2 3. How often do you have six or more drinks on one occasion?: Never Total Score: 1 Score Reviewed/Action Taken: Yes ELX-7 AMB Questionnaire LEX-7 Date LEX - 7 assessed: 01/12/25 Feeling nervous, anxious, or on edge: 0 = Not at all Not being able to stop or control worryin = Not at all Worrying too much about different things: 0 = Not at all Trouble relaxin = Not at all Being so restless that it is hard to sit still: 0 = Not at all Becoming easily annoyed or irritable: 0 = Not at all Feeling afraid as if something awful might happen: 0 = Not at all Total LEX-7 score (0-4 normal; 5-9 mild; 10-14 moderate; 15-21 severe): 0 Source: Developed by Drs. Hiren Reddy, Carmen Daniel, Sanford Sargent and colleagues, with an educational hailey from [employer]. LEX-7 Assessment Billing LEX-7 Assessment Tool: LEX-7 Assessment 82516 ACT Questionnaire In the past 4 weeks, how much of the time did your asthma keep you from getting as much done at work, school or at home?: None of the time During the past 4 weeks, how often have you had shortness of breath?: Not at all During the past 4 weeks, how often did your asthma symptoms wake you up at night or earlier than usual in the morning?: Not at all During the past 4 weeks, how often have you had to use your rescue inhaler or nebulizer medication?: Not at all How would you rate your asthma control during the past 4 weeks?: Well controlled ACT Interpretation: Negative Score: 24 Physical exam (Primary Care) Vital Signs: Last Vital Signs Temp 98.4 F 01/12/25 10:33 Pulse 81 01/12/25 10:33 Resp 16 01/12/25 10:33 BP 97/63 01/12/25 10:33 Pulse Ox 98 01/12/25 10:33 Oxygen Delivery Method Room Air 01/12/25 10:33 BMI result Body Mass Index 24.7 Tobacco/Smoking Status: Tobacco use Status Tobacco use date assessed 01/12/25 01/12/25 10:36 Patient Tobacco Use Status Never used Tobacco 01/12/25 10:36 e-Cigarette/Vaping Use Never Used 01/12/25 10:36 PHQ-9: PHQ-9 Score PHQ-9: Total score 0 01/12/25 10:36 Depression Screening Interpretation: Negative Thrive Assessment: Date of Thrive Assessment Date Thrive assessed 01/12/25 01/12/25 10:36 Currently or been in a relationship where the following occur: No concerns reported Coding Level of Care Code New Pt Level 2 (96644) Est Pt Prev Care 18-39y(16771) Diagnoses Encounter to establish care Z76.89 Need for Tdap vaccination Z23 Laboratory exam ordered as part of routine general medical examination Z00.00 Cervical cancer screening Z12.4 Uses hormonal contraceptive patch as primary control method Z78.9 Chronic urticaria L50.8 Normal physical exam Z00.00 Additional Codes LEX-7 Assessment Billing - LEX-7 Assessment Tool: LEX-7 Assessment 53055 ([id number]) PHQ-9 - 46071 - PHQ-9 Billing: Yes ([id number]) Asthma Control Questionnaire - ACT Interpretation: Negative ([id number]) Assessment & Plan Assessment & Plan (1) Encounter to establish care: Code(s): Z76.89 - Persons encountering health services in other specified circumstances (2) Need for Tdap vaccination: Code(s): Z23 - Encounter for immunization Category: Medical (3) Laboratory exam ordered as part of routine general medical examination: Code(s): Z00.00 - Encounter for general adult medical examination without abnormal findings Category: Medical (4) Cervical cancer screening: Comment: First Pap 06/12/2023 equals ASCUS with negative HPV.; Pap smear repeated 07/07/2024 with HPV= ASCUS with positive high-risk HPV.; ASCCP recommends 1 year follow-up. Records were searched patient received the 3 HPV vaccines 2014- 2015 here at [facility]. Code(s): Z12.4 - Encounter for screening for malignant neoplasm of cervix Category: Medical (5) Uses hormonal contraceptive patch as primary control method: Code(s): Z78.9 - Other specified health status Category: Medical (6) Chronic urticaria: Comment: Hx of txm with Xolair injections in 2017 with resolution of symptoms. Rash returned 01/2021. 05/2021- follows with telecommunications officer, now on cetirizine 20 mg BID. Code(s): L50.8 - Other urticaria Category: Medical (7) Normal physical exam: Onset Date: ~01/12/25 Code(s): Z00.00 - Encounter for general adult medical examination without abnormal findings Category: Medical Plan . Orders: Orders Comprehensive Met. Panel Today Z00.00 - Encounter for general adult medical examination without abnormal findings Hemoglobin A1c Today Z00.00 - Encounter for general adult medical examination without abnormal findings Lipid Panel Today Z00.00 - Encounter for general adult medical examination without abnormal findings Microalbumin, Random (w Creat) Today Z00.00 - Encounter for general adult medical examination without abnormal findings TSH reflex Free T4 Today Z00.00 - Encounter for general adult medical examination without abnormal findings Complete Blood Count no Diff Today Z00.00 - Encounter for general adult medical examination without abnormal findings IRON PROFILE Today Z00.00 - Encounter for general adult medical examination without abnormal findings AMB Rapid Strep Screen Today Z00.00 - Encounter for general adult medical examination without abnormal findings Vitamin B12 and Folate Today Z00.00 - Encounter for general adult medical examination without abnormal findings Vitamin D 25-OH Total Today Z00.00 - Encounter for general adult medical examination without abnormal findings TDaP Immunization Today Z23 - Encounter for immunization Medications: New Boostrix Tdap (diphth,pertus(acell),tetanus) 0.5 mL IM ONCE 0.5 mL 0RF NS Z23 - Encounter for immunization Changed From albuterol sulfate 90 mcg/actuation (Ventolin HFA) 2 puffs inhalation Q4-6H PRN 8.5 grams 0RF shortness of breath or wheezing To albuterol sulfate 90 mcg/actuation (Ventolin HFA) 2 puffs inhalation Q6H PRN 8.5 grams 1RF shortness of breath or wheezing Refilled epinephrine for 2 doses 0.3 mg (0.3 mL) IM ONCE PRN 2 ea 3RF anaphylaxis L50.8 - Other urticaria Patient Instructions: Patient Instructions - Keep albuterol inhaler accessible for emergencies. - Consider using antihistamine such as Zyrtec for urticaria flare-ups. - Schedule a follow-up for next year?s physical and lab results via the portal. - Utilize the portal for any emergent health issues or inquiries. - Tdap given today, next due 2034 Walk-In Care (Urgent Care): We Make it Easy Walk-in for urgent medical issues such as: ? Seasonal Allergies ? Insect Bites ? Cough ? Diarrhea ? Acute Asthma Attacks ? Back, Knee or Joint Pain ? Ear Infection ? Fever without a Rash ? Headaches ? Nausea ? [place] Eye, Rash or Skin Irritation ? Sore Throat ? Sports Physicals ? Vomiting Most insurances are accepted. Patients do not need to be part of the [facility] to seek care at the walk-in clinic. Locations [facility] , [place] [address] ? [phone] [facility] Walk-In Care in [place] provides services to ages 18 and over. Open Thursday-Thursday: 8 a.m. to 5 p.m. and Thursday: 9 a.m. to 3 p.m.* *Hours may vary due to staffing availability. To confirm Walk-In Care hours in [place], please call [phone]. [address] [place] [address] ? [phone] [facility] Walk-In Care in [place] provides services to ages 12 and over. Open Thursday-Thursday: 8 a.m. to 5 p.m. Hours may vary due to staffing availability. To confirm Walk-In Care hours in [place], please call [phone]. LABORATORY SERVICES: [facility] Lab ? Primary Location [address] [place] [address] Thursday through Thursday 6:00 AM ? 5:00 PM Thursday 7:00 AM ? 11:00 AM* [phone] The [facility] Lab is centrally located near the front entrance of the Medical Center for easy outpatient access. Convenient parking is provided for outpatients. *Hours may vary due to staffing availability. To confirm Laboratory hours for any location, please call [phone]. Offsite Location For your convenience, we offer offsite laboratory draw stations at the following locations: [address] [place] [address] ? [facility] [address], [address], [place] Thursday through Thursday 7:30 AM ? 1:00 PM* [phone] *Hours may vary due to staffing availability. To confirm Laboratory hours for any location, please call [phone]. [place] ? [facility] [address] [facility] Thursday through Thursday 6:00 AM ? 3:30 PM* Thursday 6:30 AM ? 3 PM* [phone] *Hours may vary due to staffing availability. To confirm Laboratory hours for any location, please call [phone]. [address] [facility] Thursday through Thursday 7:30 AM ? 4:00 PM* [phone] *Hours may vary due to staffing availability. To confirm Laboratory hours for any location, please call [phone] [place] [address] Thursday through 9:00 AM ? 4:00 PM* *Hours may vary due to staffing availability. To confirm Laboratory hours for any location, please call [phone]. Appointments are not necessary. Walk-ins are welcome. Like all the departments throughout the [facility], our Lab undergoes frequent reviews to ensure the quality and accuracy of test results, and our staff takes special pride in its status as a nationally accredited facility. Patient Portal: ONE PATIENT. ONE RECORD. BETTER CARE. [facility] has a fully integrated, cutting-edge mobile electronic health information system that has revolutionized the way we care for our patients and manage our organization. This system improves communication and coordination enabling us to provide safe, higher-quality care, and an overall positive experience for staff and patients. Our first priority, as always, is to deliver the highest quality care possible. The system is running in the background supporting that priority. This portal is for all [facility] services and practices. If you are experiencing any technical difficulties with enrolling or logging into the Patient Portal please complete the [facility] Patient Portal Technical Support Form. [facility] now offers a new secure on-line interactive tool for patients to review their health information ? ?Patient Portal. This interactive web portal will enable patients and their families to take an active role in their care by providing easy, secure access to their health information via the internet. The Patient Portal provides patients with instant access to their health information, including laboratory results, medications, allergies, demographic information, visit history, and more. In addition to managing their own care, parents and health care proxies with authorized consent will appreciate the ability to access the records of those individuals for whom they provide care. Please note: if you wish to gain access (Proxy) to another patient?s portal, you will be required to come to the Medical Records Department in person at [facility]. Both the patient giving proxy access and the proxy will need to provide photo identification and complete the appropriate authorization. The Patient Portal also allows track their appointments online. The [facility] Patient Portal also saves patients time by allowing them to submit updates to their demographic and contact information prior to their visits. Portal email notifications will also alert patients to any new activity on their portal, such as test results and new appointments. In order to initially enroll in the [facility] Patient Portal, you will need to enter some required information including the following: your [facility] Medical Record number your personal home email address name date of Please note: In order to enroll in the [facility] Patient Portal, we need to have your email address on file in your electronic medical record. ?The email address needs to be specific for one person (yourself) in order for your Portal enrollment to be successful. ?You can update your email address in person with our Registration staff when you are registering for a hospital visit. ?Otherwise, you will need to come to the Health Information Management (Medical Records) Department at [facility]. ?We are open from Thursday ? Thursday from 7:30 a.m. ? 4:30 p.m. ?You will be required to present a photo id. Once you have successfully enrolled in the Patient Portal, you will receive a one-time user id and password for the Portal, sent to your email address. ?This will allow you to log into the Patient Portal within 99 hrs and reset your own logon id and password, and define personal security questions. ?Once your permanent login and password have been set, you can log into the [facility] Patient Portal at any time via the blue button above or from the Portal Logon button on any page of the [facility] website. [facility] encourage all of our patients to enroll in Patient Portal as it presents a valuable opportunity for patients and their families to actively participate in their care and stay healthy Welcome to [facility]. ?We look forward to working with you. Health screenings for women You should visit your health care provider from time to time, even if you are healthy. The purpose of these visits is to: Screen for medical issues Assess your risk for future medical problems Encourage a healthy lifestyle Update vaccinations and other preventive care services Help you get to know your provider in case of an illness Information Even if you feel fine, you should still see your provider for regular checkups. These visits can help you avoid problems in the future. For example, the only way to find out if you have high blood pressure is to have it checked regularly. High blood sugar and high cholesterol levels also may not have any symptoms in the early stages. A simple blood test can check for these conditions. There are specific times when you should see your provider or receive specific health screenings. The [place] Preventive Services Task Force publishes a list of recommended screenings. Below are screening guidelines for women ages 18 to 39. BLOOD PRESSURE SCREENING Your blood pressure should be checked at least once every 3 to 5 years if: Your blood pressure is in the normal range (top number less than 120 mm Hg and bottom number less than 80 mm Hg) You don't have risk factors for high blood pressure Ask your provider if you need your blood pressure checked more often if: The top number is 120 to 129 mm Hg or the bottom number is 70 to 79 mm Hg You have diabetes, heart disease, kidney problems, are overweight, or have certain other health conditions You have a first-degree relative with high blood pressure You are Black You had high blood pressure during a If the top number is 130 mm Hg or greater or the bottom number is 80 mm Hg or greater, this is considered stage 1 hypertension. Schedule an appointment with your provider to learn how you can reduce your blood pressure. Watch for blood pressure screenings in your area. Ask your provider if you can stop in to have your blood pressure checked. BREAST CANCER SCREENING Experts do not agree about the benefits of breast self-exams in finding breast cancer or saving lives. Talk to your provider about what is best for you. A screening mammogram is not recommended for most women under age 40. Your provider may discuss and recommend mammograms, MRI scans, or ultrasounds if you have an increased risk for breast cancer, such as: A mother or sister who had breast cancer at a young age (most often starting screening earlier than the age the close relative was diagnosed) You carry a high-risk genetic marker CERVICAL CANCER SCREENING Cervical cancer screening should start at age 21 years unless your provider advises otherwise. After the first test: Women ages 21 through 29 should have a Pap test every 3 years. Exoprts do not agree on whether HPV testing is recommended for this age group. Women ages 30 through 65 should be screened with either a Pap test every 3 years or the HPV test every 5 years or both tests every 5 years (called cotesting ). Women who have been treated for precancer (cervical dysplasia) should continue to have Pap tests for 20 years after treatment or until age 65, whichever is longer. If you have had your uterus and cervix removed (total hysterectomy), and you have not been diagnosed with cervical cancer or precancer (high grade cervical neoplasia), you do not need cervical cancer screening. CHOLESTEROL SCREENING Cholesterol screening should begin at: Age 45 for women with no known risk factors for coronary heart disease Age 20 for women with known risk factors for coronary heart disease Repeat cholesterol screening should take place: Every 5 years for women with normal cholesterol levels More often if changes occur in lifestyle (including weight gain and diet) More often if you have diabetes, heart disease, kidney problems, or certain other conditions DIABETES SCREENING You should be screened for diabetes starting at age 35 and then repeated every 3 years if you have no risk factors for diabetes. Screening may need to start earlier and be repeated more often if you have other risk factors for diabetes, such as: You have a first degree relative with diabetes. You are overweight or have obesity. You have high blood pressure, prediabetes, or a history of heart disease. Screening for diabetes should be done if you are planning to become and you are overweight and have other risk factors such as high blood pressure. DENTAL EXAM Go to the dentist once or twice every year for an exam and cleaning. Your dentist will evaluate if you need more frequent visits. EYE EXAM Have an eye exam every 5 to 10 years before age 40. If you have vision problems, have an eye exam every 2 years or more often if recommended by your provider. You should have an eye exam that includes an examination of your retina (back of your eye) at least every year if you have diabetes. IMMUNIZATIONS Commonly needed vaccines include: Flu shot: get one every year. COVID-19 vaccine: ask your provider what is best for you. Tetanus-diphtheria and acellular pertussis (Tdap) vaccine: have one at or after age 19 as one of your tetanus-diphtheria vaccines if you did not receive it as an adolescent. Tetanus-diphtheria: have a booster (or Tdap) every 10 years. Varicella vaccine: receive 2 doses if you never had chickenpox or the varicella vaccine. Hepatitis B vaccine: receive 2, 3, or 4 doses, depending on your exact circumstances. Measles, mumps, and rubella (MMR) vaccine: receive 1 to 2 doses if you are not already immune to MMR. Your provider can tell you if you are immune. Ask your provider about the human papillomavirus (HPV) vaccine if: You have not received the HPV vaccine in the past You have not completed the full vaccine series (you should catch up on this shot) Ask your provider if you should receive other immunizations if you have certain health problems that increase your risk for some diseases such as pneumonia. INFECTIOUS DISEASE SCREENING Women who are sexually active should be screened for chlamydia and gonorrhea up until age 25. Women 25 years and older should be screened for chlamydia and gonorrhea if at high risk. Screening for hepatitis C: All adults ages 18 to 79 should get a one-time test for hepatitis C. people should be screened at every . Screening for human immunodeficiency virus (HIV): All people ages 15 to 65 should get a one-time test for HIV. Depending on your lifestyle and medical history, you may also need to be screened for infections such as syphilis and HIV, as well as other infections. PHYSICAL EXAM All adults should visit their provider from time to time, even if they are healthy. The purpose of these visits is to: Screen for disease Assess your risk of future medical problems Encourage a healthy lifestyle Update your vaccinations and other preventive care services Maintain a relationship with a provider in case of an illness Your height, weight, and BMI should be checked at every exam. During your exam, your provider may ask you about: Depression and anxiety Diet and exercise Alcohol and tobacco use Safety issues, such as using seat belts, smoke detectors, and intimate partner violence Your medicines and risk for interactions SKIN SELF-EXAM Your provider may check your skin for signs of skin cancer, especially if you're at high risk, such as if you: Have had skin cancer before Have close relatives with skin cancer Have a weakened immune system OTHER SCREENING Talk with your provider about colon cancer screening if you have a strong family history of colon cancer or polyps, or if you have had inflammatory bowel disease or polyps yourself. Routine bone density screening of women under 40 is not recommended.
[2025-01-12 10:33] VITALS: BP 97/63; PULSE 81; RESP 16; TEMP 36.9; O2SAT 98; BMI 24.7
== END 2025-01-12 11:03 | disposition home or self-care (01) ==
LOC: HO.HMCFM 10:24
PROVIDERS: PCP Nurse Practitioner Family; Visit Provider Nurse Practitioner Family
DX: Z00.00 Encounter for general adult medical examination without abnormal findings (principal); L50.8 Other urticaria; Z23 Encounter for immunization; Z78.9 Other specified health status

== ENCOUNTER → 2025-01-12 10:23 | Outpatient (BNVA) | payer BC, SELFPAY | PROVIDERS: PCP Nurse Practitioner Family; Visit Provider Nurse Practitioner Family | DX: Z00.00 Encounter for general adult medical examination without abnormal findings (principal); Z76.89 Persons encountering health services in other specified circumstances; Z23 Encounter for immunization; L50.8 Other urticaria; J45.909 Unspecified asthma, uncomplicated; Z78.9 Other specified health status; Z13.31 Encounter for screening for depression; Z13.39 Encounter for screening examination for other mental health and behavioral disorders | CPT/HCPCS: 90471; 90715; 96127; 96160 ==

== ENCOUNTER 2025-01-12 11:09 | Outpatient (REF) | payer BC, SELFPAY ==
[2025-01-12 14:12] LABS: Hematocrit 41.3 % (37.0-47.0); Hemoglobin 14.0 g/dl (12.0-16.0); Mean Corpuscular HGB Conc 33.9 g/dl (31.0-35.0); Mean Corpuscular Hemoglobin 30.5 pg (27.0-33.0); Mean Corpuscular Volume 90.0 fL (80.0-98.0); NRBC Abs Auto 0.000 X10*3/uL (0.0-0.012); NRBC Pct Auto 0.0 /100WBC (0.0-0.2); Platelet Count 259 X10*3/uL (160-400); Red Blood Count 4.59 X10*6/uL (4.20-5.50); White Blood Count 5.5 X10*3/uL (4.8-10.8)
[2025-01-12 14:24] LABS: Hemoglobin A1C 103.5597 umol/L; Total Hemoglobin (HGBA1C) 3715.9558 umol/L
[2025-01-12 14:35] LABS: Alanine Aminotransferase 16 U/L (0-31); Albumin Level 4.0 g/dL (3.5-5.0); Alkaline Phosphatase 62 U/L (39-117); Anion Gap 11 (12-20); Aspartate Amino Transferase 21 U/L (5-31); Blood Urea Nitrogen 9 mg/dL (9-16); Calcium 9.1 mg/dL (8.4-10.2); Carbon Dioxide 26 mmol/L (22-29); Chloride 107 mmol/L (96-108); Cholesterol 194 mg/dL (<200); Estimated Glomerular Filt Rate > 60; HDL Cholesterol 75 mg/dL (>40); Iron 120 mcg/dL (30-160); Percent Iron Saturation 33 % (15-50); Potassium 3.9 mmol/L (3.3-5.1); Sodium 140 mmol/L (135-145); Total Iron Binding Capacity 363 mcg/dL (228-428); Total Protein 6.9 g/dL (6.5-8.0); Triglycerides 69 mg/dL (<150); Unsaturated Iron Binding 243 ug/dL
[2025-01-12 14:40] LABS: Microalbum/Creatinine Ratio Ur 5.7 ug/mg cr (<30)
[2025-01-12 15:02] LABS: Folate 6.9 ng/mL (> or = 4.0); Vitamin B12 400 pg/mL (200-900)
== END 2025-01-12 11:10 | disposition home or self-care (01) ==
LOC: HO.WFDLDS 11:09
PROVIDERS: Visit Provider Nurse Practitioner Family
DX: Z00.00 Encounter for general adult medical examination without abnormal findings (principal)
CPT/HCPCS: 36415; 80053; 80061; 82043; 82306; 82570; 82607; 82746; 83036; 83540; 84443; 85027

== ENCOUNTER 2025-03-14 09:03 | Outpatient (REF) | payer BC, SELFPAY | END 2025-03-14 09:04 | disposition home or self-care (01) | LOC: HO.LAB 09:03 | PROVIDERS: PCP Nurse Practitioner Family; Visit Provider Nurse Practitioner Family | DX: Z23 Encounter for immunization (principal); R30.0 Dysuria | CPT/HCPCS: 87086; 87088; 87186; 90471; 90656 ==

== ENCOUNTER 2025-03-14 09:03 | Outpatient (AMB) | payer BC, SELFPAY ==
--- NOTE | 2025-03-14 09:05 | MHC.PC.OV ---
Vital Signs 03/14/25 09:09 Height 5 ft 1 in Weight 131 lb 8 oz BMI 24.8 BP 98/66 Blood Pressure Location Lt brachial Position Sitting Respiration 12 Pulse 86 Pulse Source Pulse Oximeter Temp 97.4 F Temp Source Oral Pulse Oximetry (%) 99 Oxygen Delivery Method Room Air Intake Visit Reasons: UTI Intake Note: Patient c/o burning when urinating and frequency x 2 says [employer] Required: No Allergies No Known Allergies Allergy (Verified 03/14/25 09:24) seasonal Allergy (Unknown, Uncoded 03/14/25 09:06) unknown Medication List - Last Reconciled 03/14/25 by Pascale Miguel, PROGRESSIVE CARE UNIT REGISTERED NURSE- albuterol sulfate 90 mcg/actuation (Ventolin HFA) 2 puffs inhalation Q6H PRN epinephrine 0.3 mg (0.3 mL) IM ONCE PRN norelgestromin-ethin.estradiol 150-35 mcg/24 hr (Xulane) 1 patch transdermal QWEEK Tobacco use date assessed: 03/14/25 Dental Screening Dental Screen Date: 03/14/25 Did you have a dental visit in the last 12 months?: Yes Did you have a dental problem in the last 6 months where you did not have access to dental care?: No Was dental information given to patient?: Patient has dentist HPI HPI Comments History of Present Illness Details 24y/o F with BV, asthma, environmental allergies, chronic autoimmune urticaria, hx of pna (05/2024) History of Present Illness The patient is a 24-year-old female presenting with urinary complaints. Dysuria: - Onset two days ago. - Burning on urination. - No prior history. Denies concern for STD No at home treatment EAting and drinking normal lmp finished today Urinary Frequency: - Initiated two days ago. - Continuous urge. Vaginal Discharge: - Thick, white discharge appeared two days ago. - No itching, first occurrence. Lower Abdominal Pain: - Lower abdominal area. - Non-radiating, two-day duration. Due for flu shot. Review of Systems - Genitourinary: Reports dysuria and urinary frequency. Denies prior episodes. - Gynecological: Reports thick, white vaginal discharge. Denies itching. - Constitutional: Denies fever or chills. - Gastrointestinal: Reports lower abdominal pain, denies back pain. Physical Exam General: Well developed, well nourished, in no acute distress. Appears stated age. Head: Normocephalic, atraumatic.. Lungs: Speaking in full sentences Abdomen: Bowel sounds present in all quadrants. The abdomen is soft, nontender, with no masses or organomegaly noted. No hernias are noted. No CVAT bilat. Psych: Mood and affect appropriate Results - Labs: Urinalysis indicates presence of bacteria and blood. Discussion Notes I discussed with the patient the likely urinary tract infection and the plan to confirm this with a urine culture, which will be sent out for analysis. I emphasized the importance of increased fluid intake to help alleviate symptoms and facilitate clearance of any bacteria. We also discussed starting pyridium to manage the discomfort from burning during urination, with the side effect of potentially turning urine orange discussed to prevent alarm. Consent was gained to administer a flu shot today. Follow-up regarding urine culture results will occur through the patient portal. Patient was given time to ask questions. All questions were answered to their satisfaction. Assessment and Plan 1. Dysuria - Possibility of UTI. Urine culture initiated. Pyridium for symptom relief. 2. Urinary Frequency - Managed with increased fluids and follows dysuria protocol. 3. Vaginal Discharge - Monitor. Possible yeast infection, though no itching. 4. Lower Abdominal Pain - Addressed indirectly via pyridium. Flu shot admin today. Patient Instructions - Take pyridium three times daily for burning relief. - Expect orange urine, may stain clothes. - Drink lots more water to flush bacteria. - Wait for portal message with test results. - Return if symptoms worsen or for any concerns. Consent The patient consented to receiving a flu shot and was informed about the effects of pyridium including potential urine discoloration. I obtained consent for urine culture and discussed the benefits of confirming the bacterial presence to ensure appropriate treatment. Discussed expected timeline for results within 24 hours, and informed of follow-up communication through the patient portal. Patient was informed and verbally consented to the use of an ambient scribe for clinic note documentation during this visit. Total time spent caring for the patient today was 30 minutes. This includes time spent before the visit reviewing the chart, time spent during the visit, and time spent after the visit on documentation, reviewing laboratory results, diagnostic imaging, medications, performing a medically necessary evaluation, counseling on diagnoses, care coordination, ordering appropriate tests, ordering appropriate medications, review of tests performed by other providers, reporting test results with the patient, communication with other healthcare providers. [facility] Medical History (Updated 03/14/25 @ 09:29 by Pascale Miguel [facility]) Asthma Atypical pneumonia COVID-19 vaccine administered No known health problems No known health problems Upper back pain Family History (Updated 01/12/25 @ 10:33 by Mercedes Baker MA) Mother No problems noted. 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 Current occupational exposures/hazards: No Cognitive needs: No Hearing needs: No Vision needs: Yes Female Reproductive History Menstrual Age of Menarche: 13 Questionnaire Thrive Questionnaire Date Thrive assessed: 01/12/25 I am a: Patient What is your living situation today?: I have a steady place to live Within the past 12 months, did the food you bought not last and you didn't have the money to get more?: Never true Within the past 12 months, did you worry whether your food would run out before you got money to buy more?: Never true Do you have trouble paying for medicines?: No Do you have trouble getting transportation to medical appointments?: No Do you have trouble paying your heating and electricity bill?: No Do you have trouble taking care of your child, family member or friend?: No Do you have trouble with day-to-day activities such as bathing, preparing meals, shopping, managing finances, etc.?: No Are you currently unemployed and looking for a job?: No Are you interested in more education?: Yes Please select the resources that you would like help with: None Currently or been in a relationship where the following occur: No concerns reported THRIVE Score: 0 LEX-7 AMB Questionnaire LEX-7 Date LEX - 7 assessed: 01/12/25 Source: Developed by Drs. Hiren Reddy, Carmen Daniel, Sanford Sargent and colleagues, with an educational hailey from [employer] [place]. Physical exam (Primary Care) Vital Signs: Last Vital Signs Temp 97.4 F 03/14/25 09:09 Pulse 86 03/14/25 09:09 Resp 12 03/14/25 09:09 BP 98/66 03/14/25 09:09 Pulse Ox 99 03/14/25 09:09 Oxygen Delivery Method Room Air 03/14/25 09:09 BMI result Body Mass Index 24.8 Tobacco/Smoking Status: Tobacco use Status Tobacco use date assessed 03/14/25 03/14/25 09:08 Patient Tobacco Use Status Never used Tobacco 03/14/25 09:08 e-Cigarette/Vaping Use Never Used 03/14/25 09:08 Thrive Assessment: Date of Thrive Assessment Date Thrive assessed 01/12/25 03/14/25 09:08 Currently or been in a relationship where the following occur: No concerns reported Results AMB Urinalysis, Automated UA Leukoctes 125 Alka/uL Last Edit by Micaela Gamez MA on 03/14/25 09:15 UA Nitrite Negative Last Edit by Micaela Gamez MA on 03/14/25 09:15 UA Urobilinogen 3.5 mg/dL Last Edit by Micaela Gamez MA on 03/14/25 09:15 UA Protein 1.0 mg/dL Last Edit by Micaela Gamez MA on 03/14/25 09:15 UA pH 6.5 Last Edit by Micaela Gamez MA on 03/14/25 09:15 UA Blood 200 Yusef/uL Last Edit by Micaela Gamez MA on 03/14/25 09:15 UA Specific Speed 1.020 Last Edit by Micaela Gamez MA on 03/14/25 09:15 UA Ketone Negative Last Edit by Micaela Gamez MA on 03/14/25 09:15 UA Bilirubin 0 mg/dL Last Edit by Micaela Gamez MA on 03/14/25 09:15 UA Glucose 0 mg/dL Last Edit by Micaela Gamez MA on 03/14/25 09:15 Results Reviewed Results Reviewed: Laboratory Last Values Urine pH (Auto) 6.5 03/14/25 09:11 Specific Speed (Auto) 1.020 03/14/25 09:11 Urine Protein (Auto) 1.0 mg/dL 03/14/25 09:11 Glucose (UA)(Auto) 0 mg/dL 03/14/25 09:11 Urine Ketones (Auto) Negative 03/14/25 09:11 Urine Blood (Auto) 200 Yusef/uL 03/14/25 09:11 Urine Nitrite (Auto) Negative 03/14/25 09:11 Urine Bilirubin (Auto) 0 mg/dL 03/14/25 09:11 Urine Urobilinogen (Auto) 3.5 mg/dL 03/14/25 09:11 Leukocyte Esterase (Auto) 125 Alka/uL 03/14/25 09:11 Coding Level of Care Code Est Pt Level 4 (33902) Complex EM visit Add On G2211 Diagnoses Dysuria R30.0 Influenza vaccination administered at current visit Z23 Assessment & Plan Assessment & Plan (1) Dysuria: Code(s): R30.0 - Dysuria Category: Medical (2) Influenza vaccination administered at current visit: Onset Date: ~03/14/25 Code(s): Z23 - Encounter for immunization Category: Medical Plan . Orders: Orders AMB Urinalysis Automated Today Z13.9 - Encounter for screening, unspecified Urine Culture Today R30.0 - Dysuria Medications: New phenazopyridine (Pyridium) 100 mg PO TID PRN 6 tabs 0RF pain 6 doses
[2025-03-14 09:09] VITALS: BP 98/66; PULSE 86; RESP 12; TEMP 36.3; O2SAT 99; BMI 24.8
== END 2025-03-14 11:17 | disposition home or self-care (01) ==
LOC: HO.HMCFM 09:04
PROVIDERS: PCP Nurse Practitioner Family; Visit Provider Nurse Practitioner Family
DX: R30.0 Dysuria (principal); Z23 Encounter for immunization

== ENCOUNTER 2025-03-16 00:20 | Emergency (ER) | payer BC, SELFPAY ==
[2025-03-16 00:25] VITALS: BP 121/60; PULSE 79; RESP 16; TEMP 36.7; O2SAT 98; BMI 24.7
[2025-03-16 00:54] VITALS: BP 121/60; PULSE 79; RESP 16; TEMP 36.7; O2SAT 98
[2025-03-16 00:56] LABS: MANUAL DIFF FLAG NO
[2025-03-16 00:57] LABS: Hematocrit 36.5 % (37.0-47.0); Hemoglobin 13.0 g/dl (12.0-16.0); Imm Gran Abs Auto 0.02 X10*3/uL (0.00-0.03); Imm Gran Pct Auto 0.2 % (0.0-0.4); Lymphocytes Absolute Auto 2.1 X10*3/uL (1.2-4.9); Mean Corpuscular HGB Conc 35.6 g/dl (31.0-35.0); Mean Corpuscular Hemoglobin 31.4 pg (27.0-33.0); Mean Corpuscular Volume 88.2 fL (80.0-98.0); NRBC Abs Auto 0.000 X10*3/uL (0.0-0.012); NRBC Pct Auto 0.0 /100WBC (0.0-0.2); Platelet Count 246 X10*3/uL (160-400); Red Blood Count 4.14 X10*6/uL (4.20-5.50); White Blood Count 8.3 X10*3/uL (4.8-10.8)
[2025-03-16 00:58] LABS: Appearance Urine Clear; Glucose Urine UA Negative (Negative); PH 7.0 (5.0-9.0); Specific Gravity - Urine 1.015 (1.005-1.025); UMIC TRIGGER UACC YES
[2025-03-16 01:00] LABS: UACC Culture Trigger YES
--- NOTE | 2025-03-16 01:08 | ED.FEMALEGU ---
HPI - Female Genitourinary General Chief complaint: Urogenital-Female Stated complaint: back pain + abd pain Time Seen by Provider: 03/16/25 00:48 Source: patient, RN notes reviewed and old records reviewed Mode of arrival: ambulatory Limitations: no limitations History of Present Illness ED Provider: Rose Marie OROZCO Narrative: 24-year-old female presents for evaluation of lower abdominal pain, urinary frequency, painful urination, back pain. Her symptoms started on Thursday, 4 days ago. She went to her doctor yesterday and had a urine dipstick which was reportedly positive for bacteria and blood. The patient's primary doctor wanted her to wait for the culture and sensitivity before giving any antibiotics. The patient has been taking Pyridium since yesterday and reports no improvement in his symptoms She has had a couple of new sexual partners and last few months but is not overly concerned for sexually transmitted diseases. Denies any fevers or chills No other complaints or concerns at this time Related Data Previous Rx's ?Medication ?Instructions ?Recorded norelgestromin 150 mcg-e.estradiol 1 patch transdermal QWEEK #9 ea 07/07/24 35 mcg/24 hr weekly transderm patch (Xulane) albuterol sulfate 90 mcg/actuation 2 puff inhalation Q6H PRN 01/12/25 aerosol inhaler (Ventolin HFA) shortness of breath or wheezing #8.5 grams epinephrine 0.3 mg/0.3 mL 0.3 mg (0.3 mL) IM ONCE PRN 01/12/25 injection, auto-injector anaphylaxis #2 ea phenazopyridine 100 mg tablet 100 mg PO TID PRN pain 6 doses #6 03/14/25 (Pyridium) tabs cefuroxime axetil 250 mg tablet 250 mg PO Q12H #13 tabs 03/16/25 Allergies Allergy/AdvReac Type Severity Reaction Status Date / Time No Known Allergies Allergy Verified 03/16/25 00:25 seasonal Allergy Unknown unknown Uncoded 03/16/25 00:25 Review of Systems Constitutional: Constitutional: Denies body ache(s), Denies chills and Denies fever(s) Eyes: Eyes: Denies blurry vision Gastrointestinal: Gastrointestinal: Reports abdominal pain and Denies nausea Genitourinary: Genitourinary: Reports hematuria, Denies genital pruritis, Reports dysuria, Denies flank pain, Denies urinary incontinence, Reports urinary hesitancy, Reports urinary urgency and Denies vaginal odor PMF Past Medical History Medical History (Updated 03/16/25 @ 01:18 by Evangelista Trotter) Atypical pneumonia Upper back pain Asthma No known health problems No known health problems COVID-19 vaccine administered Family History Family History (Updated 01/12/25 @ 10:33 by Mercedes Baker MA) Mother No problems noted. 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 exposures/hazards: No Cognitive needs: No Hearing needs: No Vision needs: Yes Physical Exam Vital Signs: Vital Signs: Last Vital Signs Temp 98.1 F 03/16/25 00:54 Pulse 79 03/16/25 00:54 Resp 16 03/16/25 00:54 BP 121/60 03/16/25 00:54 Pulse Ox 98 03/16/25 00:54 O2 Del Method Room Air 03/16/25 00:54 BMI result Body Mass Index 24.7 Const: General: healthy appearing, comfortable, no acute distress, alert and awake Nutritional Appearance: well nourished Orientation/consciousness: patient oriented x3 HEENT: Head: Yes normocephalic and Yes atraumatic Eyes: Eyelids: Yes eyelids normal Conjunctivae: conjunctivae normal Sclerae: sclerae normal Corneas: corneas normal Pupils: Equal, round and reactive pupils present EOM: EOMs intact bilaterally Neck: Neck: Yes full ROM Resp: Effort & Inspection: normal respiratory effort, able to speak in complete sentences and not labored Skin: General skin exam: elasticity normal Neuro: General: patient oriented x3 Cranial nerves: Yes Equal, round and reactive pupils present and Yes Bilaterally intact EOM present Cognition (Neuro): normal cognition Medical Decision Making Medical Decision Making MDM Narrative: 24-year-old female presents for evaluation of UTI symptoms with urinary frequency, painful urination, foul-smelling odor. She reportedly had a positive urinalysis yesterday but her doctor wanted to wait for the culture sensitivity before give her antibiotics. The patient is afebrile, has no CVA tenderness. However her urinalysis is positive for blood, nitrites, esterase, red cells, 21-50 white cells in 2+ bacteria. There are no squamous epithelial cells, so this is not a contaminant. We will treat with cefuroxime b.i.d. x7 days. A culture will still be obtained for sensitivities. I did discuss possible STI testing and pelvic examination with the patient and she declines this at this time. She appears well and does not have any evidence of sepsis or systemic infection Differential Diagnosis Differential Diagnoses: The differential diagnosis associated with the presentation includes UTI Cystitis Pyelonephritis Obstructive uropathy STI Lab Data MDM Lab Attestation statement: I reviewed the patient's lab results. No leukocytosis or significant anemia. Normal platelet count. 03/16/25 00:49 03/16/25 00:49 Labs: Lab Results 03/16/25 03/16/25 Range/Units 00:49 00:51 WBC 8.3 (4.8-10.8) X10*3/uL RBC 4.14 L (4.20-5.50) X10*6/uL Hgb 13.0 (12.0-16.0) g/dl Hct 36.5 L (37.0-47.0) % MCV 88.2 (80.0-98.0) fL MCH 31.4 (27.0-33.0) pg MCHC 35.6 H (31.0-35.0) g/dl RDW 12.2 (11.0-16.0) % Plt Count 246 (160-400) X10*3/uL MPV 10.1 (9.4-12.3) fL Immature Gran % (Auto) 0.2 (0.0-0.4) % Neut % (Auto) 66.9 (45-73) % Lymph % (Auto) 24.8 (20-40) % [place] % (Auto) 6.5 (2-11) % Eos % (Auto) 1.2 (0-4) % Baso % (Auto) 0.4 (0-2) % Lymph # (Auto) 2.1 (1.2-4.9) X10*3/uL [place] # (Auto) 0.5 (0.1-1.2) X10*3/uL Eos # (Auto) 0.1 (0.0-0.4) X10*3/uL Baso # (Auto) 0.0 (0.0-0.2) X10*3/uL Abs Immat Gran (auto) 0.02 (0.00-0.03) X10*3/uL Absolute Neuts (auto) 5.6 (2.0-8.3) x10*3/uL Absolute Nucleated RBC 0.000 (0.0-0.012) X10*3/uL Nucleated RBC % (auto) 0.0 (0.0-0.2) /100WBC Urine Color Dark Yellow Urine Appearance Clear Urine pH 7.0 (5.0-9.0) Ur Specific [place] 1.015 (1.005-1.025) Urine Protein 30 (1+) H (Neg-Trace) mg/dL Urine Glucose (UA) Negative (Negative) mg/dL Urine Ketones Negative (Negative) mg/dL Urine Blood Small (1+) H (Negative) Urine Nitrite Positive H (Negative) Ur Leukocyte Esterase Moderate (2+) H (Negative) Urine RBC 11-20 H (0-2) /HPF Urine WBC 21-50 H (0-5) /HPF Ur Squamous Epith Cells 0-2 (0-2) /HPF Urine Bacteria 2+ (None Seen) Hyaline Casts 0-2 (0-2) /LPF Discharge Plan Discharge Clinical Impression: Urinary tract infection Patient Disposition: Home, Self-Care Instructions: Urinary Tract Infection in Women (ED) Additional Instructions: Your urinalysis was positive for UTI, take the cefuroxime twice daily for 1 week. If your symptoms persist after completing her antibiotics, you may wish to follow up with your primary doctor or OBGYN for STI testing Prescriptions: New cefuroxime axetil 250 mg tablet 250 mg PO Q12H Qty: 13 0RF No Action Xulane 150-35 mcg/24 hr patch weekly 1 patch transdermal QWEEK Qty: 9 4RF Rx Instructions: apply once weekly for 3 weeks of a 4-week cycle epinephrine 0.3 mg/0.3 mL auto-injector 0.3 mg IM ONCE PRN (Reason: anaphylaxis) Qty: 2 3RF Rx Instructions: for 2 doses albuterol sulfate [Ventolin HFA] 90 mcg/actuation HFA aerosol inhaler 2 puff inhalation Q6H PRN (Reason: shortness of breath or wheezing) Qty: 8.5 1RF phenazopyridine [Pyridium] 100 mg tablet 100 mg PO TID PRN (Reason: pain) Qty: 6 0RF Print Language: [place]ib[place]
[2025-03-16 01:11] LABS: Alanine Aminotransferase 15 U/L (0-31); Albumin Level 3.7 g/dL (3.5-5.0); Alkaline Phosphatase 70 U/L (39-117); Anion Gap 9 (12-20); Aspartate Amino Transferase 17 U/L (5-31); Blood Urea Nitrogen 11 mg/dL (9-16); Calcium 8.8 mg/dL (8.4-10.2); Carbon Dioxide 26 mmol/L (22-29); Chloride 110 mmol/L (96-108); Creatinine Clr Calc Pharmacy 114.9; Estimated Glomerular Filt Rate > 60; Potassium 3.5 mmol/L (3.3-5.1); Sodium 141 mmol/L (135-145); Total Protein 6.1 g/dL (6.5-8.0)
--- NOTE | 2025-03-16 01:13 | PC.NURSE ---
pt medicated per AUG, explained this medication should be taken whole.
[2025-03-16 01:37] VITALS: BP 121/60; PULSE 79; RESP 16; TEMP 36.7; O2SAT 98
== END 2025-03-16 01:40 | disposition home or self-care (01) ==
PROVIDERS: Emergency Provider Student in an Organized Health Care Education/Training Program
DX: N39.0 Urinary tract infection, site not specified (principal); R10.9 Unspecified abdominal pain; R35.0 Frequency of micturition; M54.9 Dorsalgia, unspecified
CPT/HCPCS: 36415; 80053; 81001; 85025; 87086; 87088; 87186; 99283; 99284